=== PATIENT | male | born 1985 | race Caucasian/White ===

== ENCOUNTER → 2022-05-06 09:31 | Outpatient (BNVA) | payer BC, SELFPAY | PROVIDERS: Visit Provider Nurse Practitioner Family | DX: R74.8 Abnormal levels of other serum enzymes (principal); B19.20 Unspecified viral hepatitis C without hepatic coma | CPT/HCPCS: 80053; 86705; 86706; 86709; 86803; 87340; 87522; 87902 ==

== ENCOUNTER → 2022-05-25 15:48 | Outpatient (BNVA) | payer BC, SELFPAY | PROVIDERS: Visit Provider Nurse Practitioner Family | DX: B19.20 Unspecified viral hepatitis C without hepatic coma (principal); R74.8 Abnormal levels of other serum enzymes | CPT/HCPCS: 87522 ==

== ENCOUNTER → 2022-08-26 16:13 | Outpatient (BNVA) | payer BC, MEDICAID, SELFPAY | PROVIDERS: Visit Provider Student in an Organized Health Care Education/Training Program | DX: B18.2 Chronic viral hepatitis C (principal); Z11.4 Encounter for screening for human immunodeficiency virus [HIV] | CPT/HCPCS: 80053; 87806 ==

== ENCOUNTER 2022-09-29 06:08 | Outpatient (CLI) | payer BC, MEDICAID, SELFPAY ==
--- NOTE | 2022-09-29 06:15 | US_ITS ---
WS: [id number] RIGHT UPPER QUADRANT ULTRASOUND HISTORY: evaluate for hepatitis/ cirrhosis COMPARISON: None available. Liver: 16.4 cm in length. Liver is normal size. Normal echotexture. There is very slight nodularity a long the surface of the liver which can be seen with early changes of cirrhosis. No mass. No bile aj t dilatation. Portal Vein: Normal hepatopetal flow with monophasic waveform. Gallbladder: Normally distended gallbladder with no stones or wall thickening. CBD: 0.2 cm Pancreas: Normal size and echogenicity. Right kidney: 10.8 cm in length. Normal size and echogenicity. No hydronephrosis or mass. Aorta and IVC: Unremarkable abdominal aorta and IVC. No ascites. US/US liver [id number] IMPRESSION: 1. Normal gallbladder. 2. Normal size liver and normal echogenicity. No mass. 3. Mild surface nodularity of the liver which can be seen with cirrhosis.
== END 2022-09-29 06:09 | disposition home or self-care (01) ==
LOC: RAD 06:10
PROVIDERS: Visit Provider Student in an Organized Health Care Education/Training Program
DX: B18.2 Chronic viral hepatitis C (principal); Z11.4 Encounter for screening for human immunodeficiency virus [HIV]
CPT/HCPCS: 76705

== ENCOUNTER 2022-11-08 09:32 | Outpatient (CLI) | payer BC, MEDICAID, SELFPAY ==
[2022-11-11 20:24] LABS: HEP C RNA Viral Load Quant <1.18 NOT DETECTED Log IU/mL (NOT DETECTED); HEP C RNA Viral Load Quant <15 NOT DETECTED IU/mL (NOT DETECTED)
== END 2022-11-08 09:33 | disposition home or self-care (01) ==
LOC: LAB 09:35
PROVIDERS: PCP Student in an Organized Health Care Education/Training Program; Visit Provider Student in an Organized Health Care Education/Training Program
DX: B18.2 Chronic viral hepatitis C (principal)
CPT/HCPCS: 36415; 87522

== ENCOUNTER 2022-11-11 20:11 | Emergency (ER) | payer BC, MEDICAID, SELFPAY ==
[2022-11-11 20:17] VITALS: BP 115/93; PULSE 76; RESP 16; TEMP 36.9; O2SAT 98
--- NOTE | 2022-11-11 20:46 | W.ED.DENTAL ---
HPI - Dental/Oral General: Chief complaint: Dental/Oral Stated complaint: dental pain Time Seen by Provider: 11/11/22 20:25 History of Present Illness: Patient is in today for dental pain. He reports that for a couple of days he has had pain in his left upper jaw above his teeth at his gumline. He reports that he has terrible teeth that he is supposed to get them all pulled out next month but he thinks they are infected now. He denies fever but has had felt a little chilled today. Associated symptoms: Denies fever(s) Review of Systems Const: Reports: chills; Denies: fever(s) or body aches ENMT: Reports: dental pain Card: Denies: chest pain or palpitations Resp: Denies: dyspnea, productive cough or non-productive cough GI: Denies: abdominal pain, nausea or vomiting : Denies: flank pain, difficulty urinating or dysuria PFS ED PFSH: Surgical History Hx of eye surgery left Hx of thumb surgery right Social History Smoking and tobacco status: never smoked Second hand smoke exposure: No Smoking risk assessment/counseling performed?: No Alcohol intake: current Alcohol intake frequency: 3 or more drinks per day Alcohol type: beer Desire information about substance/drug rehabilitation?: No Counseling given: No Adopted: No Caregiver/support person: No Lives independently: Yes Household members: family Housing: House Marital status: Single Number of children: 0 Highest education level completed: 11th Grade service: No Current occupational status: unemployed Physical Exam Const: COMMON NORMALS: no acute distress, patient oriented x3 and alert HENMT: OTHER: Poor dentition with numerous caries and broken teeth. Gingiva left upper jaw is erythematous with no definitive drainable abscess appreciated. Neck/C-Spine: COMMON NORMALS: no JVD Lymph: OTHER: Anterior cervical lymphadenopathy left side. Resp: COMMON NORMALS: normal respiratory effort, No use of accessory muscles and clear to auscultation bilaterally AUSCULTATION: clear to auscultation bilaterally Cardio: COMMON NORMALS: no JVD, regular rate, regular rhythm, S1 normal heart sound present and S2 normal heart sound present RATE: regular rate RHYTHM: regular rhythm HEART SOUNDS: S1 normal heart sound present and S2 normal heart sound present Neuro: COMMON NORMALS: patient oriented x3, moves all extremities and no focal motor deficits SENSORIUM/ORIENTATION: Yes alert Course Vital Signs: Vital signs: Vital Signs Temperature 98.4 F 11/11/22 20:17 Pulse Rate 76 11/11/22 20:17 Respiratory Rate 16 11/11/22 20:17 Blood Pressure 115/93 11/11/22 20:17 Pulse Oximetry 98 11/11/22 20:17 MDM - Dental/Oral Medical Decision Making Patient is in today for dental pain times a couple of days. He denies fever but has had some chills. He has poor dentition and I reported appointment next month to have his teeth pulled. Start patient on amoxicillin antibiotic x10 days. Encouraged him to call the dentist and get on the cancellation list. Follow-up with primary care provider as needed. Return to the ER for new or worsening symptoms. Discharge Plan Discharge Patient Disposition: Home Clinical Impression: Dental caries, Dental infection Condition: Stable Prescriptions: New amoxicillin 875 mg tablet 875 mg PO BID 10 Days Qty: 20 0RF No Action Mavyret 100-40 mg tablet 3 tab PO DAILY 56 Days Qty: 168 0RF Rx Instructions: must administer with a meal/food Discharge Orders: Discharge ED (Routine); Ordered 11/11/22 Ordered By: Oly Stevenson Referrals: Alesha Liang MD [Primary Care Provider] - Discharge Diet: Usual diet Discharge Activity: Resume usual activity Activity Restrictions/Additional Instructions: Take antibiotic as directed starting tomorrow. You received your first dose of antibiotics tonight in the ER. Call and try and get on a cancellation list for your dentist so you can get in sooner potentially. Follow-up with your primary care provider. Return to the ER as needed for new or worsening symptoms Coding Level of Care Code ED Informatics Scientist for Ollie Villalta
== END 2022-11-11 21:14 | disposition home or self-care (01) ==
PROVIDERS: Emergency Provider Nurse Practitioner Family; PCP Student in an Organized Health Care Education/Training Program
DX: K02.9 Dental caries, unspecified (principal); K04.7 Periapical abscess without sinus
CPT/HCPCS: 99283

== ENCOUNTER 2022-11-15 09:39 | Emergency (ER) | payer BC, MEDICAID, SELFPAY ==
[2022-11-15 09:45] VITALS: BP 165/104; PULSE 66; RESP 16; TEMP 36.7; O2SAT 99
--- NOTE | 2022-11-15 11:15 | W.ED.DENTAL ---
HPI - Dental/Oral General: Chief complaint: Dental/Oral Stated complaint: tooth infection/scared of sepsis Time Seen by Provider: 11/15/22 09:50 History of Present Illness: Patient is a 37-year-old male comes to the ED with dental pain. Patient has been dealing with dental pain for the past 3 years. He is scheduled to see his dentist in a month to have tooth removed. Patient was seen here in the ED on November 11 for same complaint. He has been taking his prescribed amoxicillin. He says he is concerned that he is septic because he is having chills and sweaty balls and agitation per his research on sepsis. Denies any fevers. Associated symptoms: Denies fever(s) or odynophagia Review of Systems Const: Denies: fever(s), chills or fatigue Eyes: Denies: change in vision or eye discomfort ENMT: Reports: dental pain; Denies: throat pain, odynophagia, nasal discharge or nasal congestion Card: Denies: chest pain, palpitations, edema, swelling of feet/ankles, dyspnea on exertion or orthopnea Resp: Denies: dyspnea, productive cough or non-productive cough GI: Denies: abdominal pain, nausea, vomiting, diarrhea, constipation or hematochezia : Denies: flank pain, difficulty urinating, dysuria or hematuria Musc: Denies: neck pain, back pain or extremity swelling Skin/Breast: Denies: rash or new lesions Neuro: Denies: headache(s), numbness in extremities or weakness in extremities PFSH ED PFSH: Surgical History Hx of eye surgery left Hx of thumb surgery right Social History Smoking and tobacco status: never smoked Second hand smoke exposure: No Smoking risk assessment/counseling performed?: No Alcohol intake: current Alcohol intake frequency: 3 or more drinks per day Alcohol type: beer Desire information about substance/drug rehabilitation?: No Counseling given: No Adopted: No Caregiver/support person: No Lives independently: Yes Household members: family Housing: House Marital status: Single Number of children: 0 Highest education level completed: 11th Grade service: No Current occupational status: unemployed Physical Exam Const: COMMON NORMALS: patient oriented x3 HENMT: COMMON NORMALS: normocephalic HEAD & SCALP: normocephalic MOUTH: Normal oral and palatal mucosa present TEETH & GINGIVA: Yes caries and Yes poor dentition THROAT: posterior oropharynx normal and uvula midline Neck/C-Spine: COMMON NORMALS: supple GENERAL: Yes normal visual inspection Resp: COMMON NORMALS: normal respiratory effort, No retractions, No use of accessory muscles and clear to auscultation bilaterally AUSCULTATION: clear to auscultation bilaterally Cardio: COMMON NORMALS: regular rate, regular rhythm, S1 normal heart sound present, S2 normal heart sound present, No gallops present (Cardio), No clicks present (Cardio), No murmurs present (Cardio) and Peripheral pulses 2+ throughout RATE: regular rate RHYTHM: regular rhythm HEART SOUNDS: S1 normal heart sound present and S2 normal heart sound present PERIPHERAL PULSES: Peripheral pulses 2+ throughout GI: COMMON NORMALS: Normal to inspection, nondistended, normoactive bowel sounds present, Soft to palpation, non-tender and no masses PALPATION: Yes Soft to palpation : COMMON NORMALS: Yes no CVA tenderness BLADDER/KIDNEY EXAM: Yes no CVA tenderness Back/Pelvis: COMMON NORMALS: no CVA tenderness Extremity: COMMON NORMALS: normal to inspection Neuro: COMMON NORMALS: patient oriented x3 GAIT: Yes Normal gait present Skin: GENERAL SKIN EXAM: dry skin Course Vital Signs: Vital signs: Vital Signs Temperature 98.1 F 11/15/22 09:45 Pulse Rate 80 11/15/22 12:16 Respiratory Rate 16 11/15/22 12:16 Blood Pressure 165/104 11/15/22 09:45 Pulse Oximetry 98 11/15/22 12:16 Oxygen Delivery Mn thod 11/15/22 12:16 [facility] - Dental/Oral Medical Decision Making Patient is a 37-year-old male comes to the ED with dental pain. Patient has been dealing with dental pain for the past 3 years. He is scheduled to see his dentist in a month to have tooth removed. Patient was seen here in the ED on November 11 for same complaint. He has been taking his prescribed amoxicillin. He says he is concerned that he is septic because he is having chills and sweaty balls and agitation per his research on sepsis. Denies any fevers. Vital stable. CBC unremarkable white blood cell count 7.1. Exam of patient shows poor dental health with extensive dental caries. Patient was discharged home on clindamycin and told to follow-up with his dentist at his next scheduled appointment. Return ED precautions given. Patient understood and agreed with plan. Lab Data I reviewed the patient's lab results. 11/15/22 11: Laboratory Results WBC 7.1 10^3/uL (4.0-10.0) 11/15/22 11: RBC 4.97 10^6/uL (4.1-5.3) 11/15/22 11: Hgb 16.4 g/dL (11.7-16.6) 11/15/22 11: Hct 46.0 % (42.0-52.0) 11/15/22 11: MCV 92.6 fl (80-94) 11/15/22 11: MCH 33.0 pg (28.0-34.0) 11/15/22 11: MCHC 35.7 g/dL (30.0-36.0) 11/15/22 11: RDW 11.9 % (12.1-15.1) L 11/15/22 11: Plt Count 211 10^3/cmm (130-400) 11/15/22 11: MPV 9.3 fL (7.4-10.4) 11/15/22 11: Neut % (Auto) 63.6 % 11/15/22 11: Lymph % (Auto) 28.2 % 11/15/22 11: [place] % (Auto) 6.2 % 11/15/22 11: Eos % (Auto) 1.3 % 11/15/22 11: Baso % (Auto) 0.4 % 11/15/22 11: Neut # (Auto) 4.52 10^3/uL (1.8-7.7) 11/15/22 11: Lymph # (Auto) 2.0 10^3/uL (0.8-4.8) 11/15/22 11: [place] # (Auto) 0.4 10^3/uL (0.2-0.9) 11/15/22 11: Eos # (Auto) 0.1 10^3/uL (0.0-0.8) 11/15/22 11:27 Baso # (Auto) 0.0 10^3/uL (0.0-0.1) 11/15/22 11:27 Nucleated RBC % (auto) 0 % 11/15/22 11:27 Nucleated RBCs # 0.0 /100WBC 11/15/22 11:27 Discharge Plan Discharge Patient Disposition: Home Clinical Impression: Dental infection Condition: Stable Prescriptions: New clindamycin HCl 150 mg capsule 300 mg PO QID 7 Days Qty: 56 0RF No Action Mavyret 100-40 mg tablet 3 tab PO DAILY 56 Days Qty: 168 0RF Rx Instructions: must administer with a meal/food amoxicillin 875 mg tablet 875 mg PO BID 10 Days Qty: 20 0RF Discharge Orders: Discharge ED (Routine); Ordered 11/15/22 Ordered By: Venkat Collins Referrals: Alesha Liang MD [Primary Care Provider] - Discharge Diet: Regular Discharge Activity: Increase activity as tolerated Activity Restrictions/Additional Instructions: Follow-up with your dentist at your next scheduled appointment. Take medications as prescribed. Return to the ER or your medical provider if condition worsens. Please read and understand discharge instructions. Thank you for choosing [facility] for your healthcare needs today. Please realize this is an emergency room and that we are providing you with a medical screening exam and this may not be complete and all inclusive of all the testing and or work up that you may need to determine your ailment or severity of your illness. It is very important that you follow up as instructed or that you return to the Emergency Department should you have concerns or if your condition changes or worsens in any way. Coding Level of Care Code ED Clinical Nutritionist for Ollie Villalta
[2022-11-15 11:33] LABS: Basophils % 0.4 %; Eosinophils # 0.1 10^3/uL (0.0-0.8); Eosinophils % 1.3 %; Hemoglobin 16.4 g/dL (11.7-16.6); Lymphocytes % 28.2 %; Mean Corpuscular HGB Conc 35.7 g/dL (30.0-36.0); Mean Corpuscular Volume 92.6 fl (80-94); Mean Platelet Volume 9.3 fL (7.4-10.4); Monocytes # 0.4 10^3/uL (0.2-0.9); Monocytes % 6.2 %; Neutrophils # 4.52 10^3/uL (1.8-7.7); Neutrophils % 63.6 %; Nucleated Red Blood Cells % 0 %; Platelet Count 211 10^3/cmm (130-400); Red Blood Count 4.97 10^6/uL (4.1-5.3); Red Cell Distribution Width 11.9 % (12.1-15.1); White Blood Count 7.1 10^3/uL (4.0-10.0)
[2022-11-15] MEDS: clindamycin 150 mg Capsule 300 MG PO (12:12)
[2022-11-15 12:16] VITALS: PULSE 80; RESP 16; O2SAT 98
== END 2022-11-15 12:17 | disposition home or self-care (01) ==
PROVIDERS: Emergency Provider Physician Assistant; PCP Student in an Organized Health Care Education/Training Program
DX: K04.7 Periapical abscess without sinus (principal)
CPT/HCPCS: 36415; 85025; 99283

== ENCOUNTER 2022-11-29 09:59 | Emergency (ER) | payer BC, MEDICAID, SELFPAY ==
[2022-11-29 10:20] VITALS: BP 170/115; PULSE 79; RESP 17; TEMP 36.5; O2SAT 98; BMI 22.3
[2022-11-29 12:06] VITALS: BP 150/87; PULSE 77; RESP 16; O2SAT 97
--- NOTE | 2022-11-29 12:07 | W.ED.DENTAL ---
HPI - Dental/Oral General: Chief complaint: Dental/Oral Stated complaint: tooth infection Time Seen by Provider: 11/29/22 10:07 History of Present Illness: Patient is a 37-year-old male that comes to the ED with dental pain. Patient has been seen here multiple times in the past for same complaint and his most recent visit was on November 15. He took his full course of clindamycin and said his symptoms improved. This morning he woke up and he was having some shooting dental pains again. Denies any facial or gum swelling. He has an appointment with his dentist on December 21. Associated symptoms: Denies fever(s) or odynophagia Review of Systems Const: Denies: fever(s), chills or fatigue Eyes: Denies: change in vision or eye discomfort ENMT: Reports: dental pain; Denies: throat pain, odynophagia, nasal discharge or nasal congestion Card: Denies: chest pain, palpitations, edema, swelling of feet/ankles, dyspnea on exertion or orthopnea Resp: Denies: dyspnea, productive cough or non-productive cough GI: Denies: abdominal pain, nausea, vomiting, diarrhea, constipation or hematochezia : Denies: flank pain, difficulty urinating, dysuria or hematuria Musc: Denies: neck pain, back pain or extremity swelling Skin/Breast: Denies: rash or new lesions Neuro: Denies: headache(s), numbness in extremities or weakness in extremities PFS ED PFSH: Surgical History Hx of eye surgery left Hx of thumb surgery right Social History Smoking and tobacco status: never smoked Second hand smoke exposure: No Smoking risk assessment/counseling performed?: No Alcohol intake: current Alcohol intake frequency: 3 or more drinks per day Alcohol type: beer Substance/Drug Use: never Desire information about substance/drug rehabilitation?: No Counseling given: No Adopted: No Caregiver/support person: No Lives independently: Yes Household members: family Housing: House Marital status: Single Number of children: 0 Highest education level completed: 11th Grade service: No Current occupational status: unemployed Physical Exam Const: COMMON NORMALS: patient oriented x3 HENMT: COMMON NORMALS: normocephalic HEAD & SCALP: normocephalic MOUTH: Normal oral and palatal mucosa present TEETH & GINGIVA: Yes caries and Yes poor dentition THROAT: posterior oropharynx normal and uvula midline Neck/C-Spine: COMMON NORMALS: supple GENERAL: Yes normal visual inspection Resp: COMMON NORMALS: normal respiratory effort, No retractions, No use of accessory muscles and clear to auscultation bilaterally AUSCULTATION: clear to auscultation bilaterally Cardio: COMMON NORMALS: regular rate, regular rhythm, S1 normal heart sound present, S2 normal heart sound present, No gallops present (Cardio), No clicks present (Cardio), No murmurs present (Cardio) and Peripheral pulses 2+ throughout RATE: regular rate RHYTHM: regular rhythm HEART SOUNDS: S1 normal heart sound present and S2 normal heart sound present PERIPHERAL PULSES: Peripheral pulses 2+ throughout GI: COMMON NORMALS: Normal to inspection, nondistended, normoactive bowel sounds present, Soft to palpation, non-tender and no masses PALPATION: Yes Soft to palpation : COMMON NORMALS: Yes no CVA tenderness BLADDER/KIDNEY EXAM: Yes no CVA tenderness Back/Pelvis: COMMON NORMALS: no CVA tenderness Extremity: COMMON NORMALS: normal to inspection Neuro: COMMON NORMALS: patient oriented x3 GAIT: Yes Normal gait present Skin: GENERAL SKIN EXAM: dry skin Course Vital Signs: Vital signs: Vital Signs Temperature 97.7 F 11/29/22 10:20 Pulse Rate 77 11/29/22 12:36 Respiratory Rate 16 11/29/22 12:36 Blood Pressure 157/90 11/29/22 12:36 Pulse Oximetry 98 11/29/22 12:36 Oxygen Delivery Me thod Room Air 11/29/22 12:06 MDM - Dental/Oral Medical Decision Making Patient is a 37-year-old male that comes to the ED with dental pain. Patient has been seen here multiple times in the past for same complaint and his most recent visit was on November 15. He took his full course of clindamycin and said his symptoms improved. This morning he woke up and he was having some shooting dental pains again. Denies any facial or gum swelling. He has an appointment with his dentist on December 21. Vitals are stable. Patient appears nontoxic in no acute distress or pain. He has poor dental health and dental caries all throughout his teeth. Patient diagnosed with pain due to dental caries and was discharged home on antibiotic. Patient told to follow-up with his dentist at his scheduled appointment in December for further treatment of dental issues. Patient understood and agreed with plan Discharge Plan Discharge Patient Disposition: Home Clinical Impression: Pain due to dental caries Condition: Stable Prescriptions: New Augmentin 500-125 mg tablet 1 tab PO BID 7 Days Qty: 14 0RF Discharge Orders: Discharge ED (Routine); Ordered 11/29/22 Ordered By: Venkat Collins Referrals: Alesha Liang MD [Primary Care Provider] - Discharge Diet: Regular Discharge Activity: Increase activity as tolerated Activity Restrictions/Additional Instructions: Follow-up with your dentist at your next scheduled appointment. Take medications as prescribed. Return to the ER or your medical provider if condition worsens. Please read and understand discharge instructions. Thank you for choosing [facility] for your healthcare needs today. Please realize this is an emergency room and that we are providing you with a medical screening exam and this may not be complete and all inclusive of all the testing and or work up that you may need to determine your ailment or severity of your illness. It is very important that you follow up as instructed or that you return to the Emergency Department should you have concerns or if your condition changes or worsens in any way. Coding Level of Care Code ED Oil Field Rig Builder for Ollie Villalta
[2022-11-29 12:36] VITALS: BP 157/90; PULSE 77; RESP 16; O2SAT 98
== END 2022-11-29 12:37 | disposition home or self-care (01) ==
PROVIDERS: Emergency Provider Physician Assistant; PCP Student in an Organized Health Care Education/Training Program
DX: K02.9 Dental caries, unspecified (principal)
CPT/HCPCS: 99283

== ENCOUNTER 2023-02-11 14:04 | Emergency (ER) | payer BC, MEDICAID, SELFPAY ==
[2023-02-11 14:13] VITALS: BP 162/102; PULSE 82; RESP 17; TEMP 36.6; O2SAT 98; BMI 20.6
[2023-02-11 15:56] LABS: Basophils # 0.1 10^3/uL (0.0-0.1); Basophils % 0.7 %; Eosinophils # 0.3 10^3/uL (0.0-0.8); Eosinophils % 3.3 %; Hematocrit 44.9 % (42.0-52.0); Hemoglobin 15.5 g/dL (11.7-16.6); Lymphocytes # 2.6 10^3/uL (0.8-4.8); Lymphocytes % 33.7 %; Mean Corpuscular HGB Conc 34.5 g/dL (30.0-36.0); Mean Corpuscular Hemoglobin 31.9 pg (28.0-34.0); Mean Corpuscular Volume 92.4 fl (80-94); Mean Platelet Volume 10.4 fL (7.4-10.4); Monocytes # 0.7 10^3/uL (0.2-0.9); Monocytes % 8.7 %; Neutrophils # 4.09 10^3/uL (1.8-7.7); Neutrophils % 53.2 %; Nucleated Red Blood Cells % 0 %; Platelet Count 172 10^3/cmm (130-400); Red Blood Count 4.86 10^6/uL (4.1-5.3); White Blood Count 7.7 10^3/uL (4.0-10.0)
[2023-02-11 16:21] LABS: Alanine Aminotransferase 15 U/L (0-41); Albumin Level 4.7 g/dL (3.5-5.2); Alkaline Phosphatase 46 U/L (40-130); Anion Gap 13.3 (5-19); Aspartate Amino Transferase 25 U/L (0-40); Blood Urea Nitrogen 10 mg/dL (6-20); Calcium 10.1 mg/dL (8.5-10.5); Carbon Dioxide 28 mmol/L (22-29); Chloride 102 mmol/L (98-107); Creatinine Clr Calc Pharmacy 130.0592; Globulin 3.2 g/dL (1.3-4.6); Glomerular Filtration Rate 109.4 mL/min (90-130); Glucose 94 mg/dL (65-115); Lipase 26 U/L (13-60); Osmolality Calculated 287 mOsm/kg (285-295); Potassium 4.3 mmol/L (3.5-5.1); Sodium 139 mmol/L (136-145); Total Bilirubin 0.7 mg/dL (0.15-1.2); Total Protein 7.9 g/dL (6.6-8.7)
--- NOTE | 2023-02-11 16:24 | XRR_ITS ---
PROCEDURE INFORMATION: Exam: XR Abdomen Exam date and time: 02/11/2023 4:34 PM Age: 37 years old Clinical indication: Constipation TECHNIQUE: Imaging protocol: Radiologic exam of the abdomen. Views: Frontal supine view of the abdomen. 1 View. COMPARISON: US liver [id number] 09/29/2022 6:25 AM FINDINGS: Gastrointestinal tract: [id number] amount of stool dispersed throughout the colon. No bowel dilation. Bones/joints: Unremarkable. XR/XR abdomen 1V* [id number] IMPRESSION: No acute findings.
--- NOTE | 2023-02-11 16:45 | ED_ITS ---
HPI - Abdominal Pain General: Chief Complaint: Abdominal Pain Stated Complaint: abd pain, constipation, black stool Time Seen by Provider: 02/11/23 16:20 History of Present Illness: Patient presents to the ER with complaints of worsening stomach ulcers abdominal pain and constipation. Patient states has not been having much of an appetite. Patient states he has been having black tarry stools. He states that he has been using everything [id number] nothing seems to work. Patient said he used to be an alcoholic but recently stopped drinking about 4 months ago. Review of Systems General: Reports: 10 or more systems reviewed and unremarkable except in HPI and below PFSH ED PFSH: Surgical History Hx of eye surgery left Hx of thumb surgery right Social History Smoking and tobacco status: never smoked Second hand smoke exposure: No Smoking risk assessment/counseling performed?: No Alcohol intake: current Alcohol intake frequency: 3 or more drinks per day Alcohol type: beer Substance/Drug Use: never Desire information about substance/drug rehabilitation?: No Counseling given: No Adopted: No Caregiver/support person: No Lives independently: Yes Household members: family Housing: House Marital status: Single Number of children: 0 Highest education level completed: 11th Grade service: No Current occupational status: unemployed Physical Exam Const: COMMON NORMALS: no acute distress, average body habitus, patient or iented x3, no limitations, healthy appearing, alert and well nourished HENMT: COMMON NORMALS: normocephalic, atraumatic, hearing grossly normal bi laterally, external ears normal, Normal external nose present and moist oral mucous membranes HEAD & SCALP: normocephalic and atraumatic NOSE: Normal external nose present EXTERNAL EAR: Yes external ears normal Eye: COMMON NORMALS: Equal, round and reactive pupils present, EOMs intact bilaterally, conjunctivae normal and no scleral icterus CONJUNCTIVA: Yes conjunctivae normal PUPIL: Yes Equal, round and reactive pupils present Neck/C-Spine: COMMON NORMALS: full ROM, no lymphadenopathy, supple, no meningeal signs, no JVD and Thyroid normal THYROID: Thyroid normal Lymph: LYMPHATIC: no lymphadenopathy noted Chest: COMMONS NORMALS: normal inspection of the chest and normal palpation of entire chest wall Resp: COMMON NORMALS: normal respiratory effort, No retractions, No use of accessory muscles and clear to auscultation bilaterally AUSCULTATION: clear to auscultation bilaterally Cardio: COMMON NORMALS: no JVD, regular rate, regular rhythm, S1 normal heart sound present, S2 normal heart sound present, No gallops present (Cardio), No clicks present (Cardio), No murmurs present (Cardio) and No rub (Cardio) RATE: regular rate RHYTHM: regular rhythm HEART SOUNDS: S1 normal heart sound present and S2 normal heart sound present GI: COMMON NORMALS: Normal to inspection, nondistended, normoactive bowel sounds present, Soft to palpation, non-tender, No hepatosplenomegaly present and no masses PALPATION: Yes Soft to palpation and Yes No hepatosplenomegaly present : COMMON NORMALS: Yes no CVA tenderness BLADDER/KIDNEY EXAM: Yes no CVA tenderness Back/Pelvis: COMMON NORMALS: no CVA tenderness Neuro: COMMON NORMALS: patient oriented x3 SENSORIUM/ORIENTATION: Yes alert MENINGEAL SIGNS: Yes no meningeal signs Course Vital Signs: Vital signs: Vital Signs Temperature 97.9 F 02/11/23 14:13 Pulse Rate 61 02/11/23 17:57 Respiratory Rate 17 02/11/23 14:13 Blood Pressure 143/102 02/11/23 17:57 Pulse Oximetry 93 02/11/23 17:57 Oxygen Delivery Me thod Room Air 02/11/23 17:57 MDM - Abdominal Pain Medical Decision Making Patient presents today with complaints of worsening ulcer type epigastric pain. Patient states he is failed everything [id number] and is also having some dark tarry stools. Lab work was obtained which is unremarkable. A stool sample was sent to lab, patient was given a GI cocktail which did seem to help. Patient be discharged home on Differential Diagnosis Likely abdominal pain and constipation; Unlikely acute appendicitis, calculus of kidney, diverticulitis, endometriosis, gastroenteritis, pancreatitis or small bowel obstruction Medical Records I reviewed the patient's medical records. Lab Data I reviewed the patient's lab results. 02/11/23 15:36 02/11/23 15:36 Labs/Radiology: Radiology Impressions Abdomen X-Ray 02/11/23 16:24 IMPRESSION: No acute findings. Laboratory Results WBC 7.7 10^3/uL (4.0-10.0) 02/11/23 15:36 RBC 4.86 10^6/uL (4.1-5.3) 02/11/23 15:36 Hgb 15.5 g/dL (11.7-16.6) 02/11/23 15:36 Hct 44.9 % (42.0-52.0) 02/11/23 15:36 MCV 92.4 fl (80-94) 02/11/23 15:36 MCH 31.9 pg (28.0-34.0) 02/11/23 15:36 MCHC 34.5 g/dL (30.0-36.0) 02/11/23 15:36 RDW 12.0 % (12.1-15.1) L 02/11/23 15:36 Plt Count 172 10^3/cmm (130-400) 02/11/23 15:36 MPV 10.4 fL (7.4-10.4) 02/11/23 15:36 Neut % (Auto) 53.2 % 02/11/23 15:36 Lymph % (Auto) 33.7 % 02/11/23 15:36 [place] % (Auto) 8.7 % 02/11/23 15:36 Eos % (Auto) 3.3 % 02/11/23 15:36 Baso % (Auto) 0.7 % 02/11/23 15:36 Neut # (Auto) 4.09 10^3/uL (1.8-7.7) 02/11/23 15:36 Lymph # (Auto) 2.6 10^3/uL (0.8-4.8) 02/11/23 15:36 [place] # (Auto) 0.7 10^3/uL (0.2-0.9) 02/11/23 15:36 Eos # (Auto) 0.3 10^3/uL (0.0-0.8) 02/11/23 15:36 Baso # (Auto) 0.1 10^3/uL (0.0-0.1) 02/11/23 15:36 Nucleated RBC % (auto) 0 % 02/11/23 15:36 Nucleated RBCs # 0.0 /100WBC 02/11/23 15:36 Sodium 139 mmol/L (136-145) 02/11/23 15:36 Potassium 4.3 mmol/L (3.5-5.1) 02/11/23 15:36 Chloride 102 mmol/L (98-107) 02/11/23 15:36 Carbon Dioxide 28 mmol/L (22-29) 02/11/23 15:36 Anion Gap 13.3 (5-19) 02/11/23 15:36 BUN 10 mg/dL (6-20) 02/11/23 15:36 Creatinine 0.8 mg/dL (0.7-1.2) 02/11/23 15:36 GFR Calculation 109.4 mL/min (90-130) 02/11/23 15:36 Glucose 94 mg/dL (65-115) 02/11/23 15:36 Calculated Osmolality 287 mOsm/kg (285-295) 02/11/23 15:36 Calcium 10.1 mg/dL (8.5-10.5) 02/11/23 15:36 Total Bilirubin 0.7 mg/dL (0.15-1.2) 02/11/23 15:36 AST 25 U/L (0-40) 02/11/23 15:36 ALT 15 U/L (0-41) 02/11/23 15:36 Alkaline Phosphatase 46 U/L (40-130) 02/11/23 15:36 Total Protein 7.9 g/dL (6.6-8.7) 02/11/23 15:36 Albumin 4.7 g/dL (3.5-5.2) 02/11/23 15:36 Globulin 3.2 g/dL (1.3-4.6) 02/11/23 15:36 Lipase 26 U/L (13-60) 02/11/23 15:36 Discharge Plan Discharge Patient Disposition: Home Clinical Impression: Peptic ulcer disease Gastritis Qualifiers: Gastritis type: other gastritis Chronicity: unspecified Gastritis bleeding: presence of bleeding unspecified Qualified Code(s): K29.60 - Other gastritis without bleeding Condition: Stable Prescriptions: New pantoprazole [Protonix] 40 mg tablet,delayed release (DR/EC) 40 mg PO DAILY Qty: 30 0RF sucralfate [Carafate] 1 gram tablet 1 g PO Q6H Qty: 60 0RF Discharge Orders: Discharge ED (Routine); Ordered 07/07/23 Ordered By: Keith Ramey Referrals: Alesha Liang MD [Primary Care Provider] - Patient Instructions: Peptic Ulcer (ED), Diet for Stomach Ulcers and Gastritis (ED) Activity Restrictions/Additional Instructions: Please take all medicine as prescribed. Please follow-up with PCP in the next 1 week or sooner as needed. Coding Level of Care Code ED Station Captain for Ollie Villalta
[2023-02-11 16:53] VITALS: BP 153/100; PULSE 75; O2SAT 95
[2023-02-11] MEDS: lidocaine 2% viscous 15 ML, aluminum-mag hydrox-simethicon 30 ML, sucralfate oral liq 1 GM PO (17:00)
[2023-02-11 17:57] VITALS: BP 143/102; PULSE 61; O2SAT 93
[2023-02-11 18:23] LABS: Urine Appearance Clear (CLEAR); Urine Color Yellow (Yellow); pH Urine 5 (5-7)
[2023-02-11 18:25] LABS: Blood Urine Neg (Negative); Glucose Urine UA Norm (Normal); Ketones Urine Negative (Negative); Protein Urine Neg (Negative)
[2023-02-11 18:26] VITALS: BP 143/85; PULSE 85; O2SAT 99
[2023-02-11 18:26] LABS: Add Urine Microscopic? YES; Bilirubin Urine Neg (Negative); Leukocyte Esterase Urine 1+ (Negative); Nitrate Urine Negative (Negative); Squamous Epithelial Cell Urine 0-4 /hpf (0-5); Urobilinogen Urine Norm (Negative); WBC Urine 0-4 /hpf (0-5)
== END 2023-02-11 18:27 | disposition home or self-care (01) ==
PROVIDERS: Physician Assistant; Emergency Provider Emergency Medicine; PCP Student in an Organized Health Care Education/Training Program
DX: K29.60 Other gastritis without bleeding (principal); K27.9 Peptic ulcer, site unspecified, unspecified as acute or chronic, without hemorrhage or perforation
CPT/HCPCS: 36415; 74018; 80053; 81001; 82274; 83690; 85025; 99284

== ENCOUNTER 2023-03-12 06:13 | Emergency (ER) | payer BC, MEDICAID, SELFPAY ==
[2023-03-12 06:15] VITALS: BP 140/90; PULSE 75; RESP 18; TEMP 36.8; O2SAT 96; BMI 20.9
[2023-03-12 06:20] VITALS: BP 140/90; PULSE 56; RESP 18; O2SAT 93
--- NOTE | 2023-03-12 06:40 | ED_ITS ---
HPI - Abdominal Pain General: Chief Complaint: Abdominal Pain Stated Complaint: RUQ pain Time Seen by Provider: 03/12/23 06:25 History of Present Illness: 37-year-old male presents emergency department complaints of right upper quadrant abdominal pain he states this has been ongoing for the previous 3 weeks. He states he has seen a medical provider here in the emergency department and received Protonix which she initially started taking at 20 mg once a day he has seen his primary care provider who increased his dose to 20 mg twice a day he is also scheduled for an EGD on March 18. He states he has continued to have a burning type sensation. He states that he initially was taking Carafate which was prescribed here in the emergency department but ran out. He states he is concerned that his liver enzymes are slightly elevated again as he does have a history of hepatitis C and did receive treatment some number of months ago. He states he has not consumed alcohol and has followed the recommendations previously given to him. He states his discomfort is a 3 out of 10 burning type pain. He does state that he has associated diarrhea that is watery in nature he states there is no hematic emesis or hematochezia that he is noted. Associated Symptoms: Reports diarrhea Review of Systems 2 General: Reports: 10 or more systems reviewed and unremarkable except in HPI and below GI: Reports: abdominal pain and diarrhea PFSH ED PFSH: Surgical History Hx of eye surgery left Hx of thumb surgery right Social History Smoking and tobacco status: never smoked Second hand smoke exposure: No Smoking risk assessment/counseling performed?: No Alcohol intake: current Alcohol intake frequency: 3 or more drinks per day Alcohol type: beer Substance/Drug Use: never Desire information about substance/drug rehabilitation?: No Counseling given: No Adopted: No Caregiver/support person: No Lives independently: Yes Household members: family Housing: House Marital status: Single Number of children: 0 Highest education level completed: 11th Grade service: No Current occupational status: unemployed Physical Exam Const: COMMON NORMALS: no acute distress, patient oriented x3 and alert HENMT: COMMON NORMALS: normocephalic, atraumatic, external ears normal and Normal external nose present HEAD & SCALP: normal to inspection, normocephalic and atraumatic NOSE: Normal external nose present EXTERNAL EAR: Yes external ears normal MOUTH: Normal oral and palatal mucosa present and tongue abnormal TEETH & GINGIVA: Yes poor dentition Eye: COMMON NORMALS: Equal, round and reactive pupils present GENERAL EYE: appearance normal, both eyes and all related structures PUPIL: Yes Equal, round and reactive pupils present Neck/C-Spine: GENERAL: Yes normal visual inspection and Yes trachea midline Lymph: LYMPHATIC: no lymphadenopathy noted and no lymphedema noted Chest: COMMONS NORMALS: normal inspection of the chest and normal palpation of entire chest wall Resp: COMMON NORMALS: normal respiratory effort, No retractions, No use of accessory muscles and clear to auscultation bilaterally AUSCULTATION: clear to auscultation bilaterally Cardio: COMMON NORMALS: regular rhythm, S1 normal heart sound present, S2 normal heart sound present, No gallops present (Cardio), No murmurs present (Cardio) and Peripheral pulses 2+ throughout RHYTHM: regular rhythm HEART SOUNDS: S1 normal heart sound present and S2 normal heart sound present PERIPHERAL PULSES: Peripheral pulses 2+ throughout GI: COMMON NORMALS: Normal to inspection, nondistended, normoactive bowel sounds present, Soft to palpation, non-tender, No hepatosplenomegaly present and no masses PALPATION: Yes Soft to palpation and Yes No hepatosplenomegaly pres ent : COMMON NORMALS: Yes no CVA tenderness BLADDER/KIDNEY EXAM: Yes no CVA tenderness Back/Pelvis: COMMON NORMALS: no CVA tenderness and thoracic and lumbar spine normal to inspection Extremity: GENERAL: Yes normal exam except as noted Neuro: COMMON NORMALS: patient oriented x3, moves all extremities, no sensory deficits noted and gait normal SENSORIUM/ORIENTATION: Yes alert Psych: COMMON NORMALS: mental status grossly normal, Normal thought process present, cooperative and speech normal SPEECH: Yes normal speech THOUGHT PROCESS: Normal thought process present Skin: COMMON NORMALS: no rashes or lesions noted, turgor normal and no jaundice GENERAL SKIN EXAM: no rashes or lesions noted and turgor normal Course Vital Signs: Vital signs: Vital Signs Temperature 98.3 F 03/12/23 06:15 Pulse Rate 52 L 03/12/23 07:00 Respiratory Rate 16 03/12/23 07:00 Blood Pressure 140/90 03/12/23 06:20 Pulse Oximetry 96 03/12/23 07:00 Oxygen Delivery Me thod Room Air 03/12/23 06:20 MDM - Abdominal Pain Medical Decision Making Patient physical exam completed and documented, I reviewed the patient's previous medical record where he was seen and diagnosed with gastritis he states he has been taking pantoprazole and was initially prescribed Carafate but has ran out. He states he is scheduled for an EGD on March 18. He states he is concerned as he does feel intermittent pain to his right upper quadrant I suspect this is most likely that he is trying to get his life together in be healthier since his diagnosis of hepatitis C. He does not appear in acute distress I did review his laboratory evaluations and found no significant abnormalities and I share that information with him and provided continued support and encouragement for his healthy lifestyle change. I will prescribe him Carafate to help for his peptic ulcer disease and recommended continue taking his pantoprazole as prescribed by his primary care provider twice a day. Patient verbalized understanding all information provided was discharged home in stable condition in no acute distress. Medical Records I reviewed the patient's medical records. I reviewed the patient's previous medical records as well as previous laboratory evaluation. Lab Data I reviewed the patient's lab results. 03/12/23 06:27 03/12/23 06:27 Labs/Radiology: Laboratory Results WBC 5.6 10^3/uL (4.0-10.0) 03/12/23 06:27 RBC 4.45 10^6/uL (4.1-5.3) 03/12/23 06:27 Hgb 14.3 g/dL (11.7-16.6) 03/12/23 06:27 Hct 41.1 % (42.0-52.0) L 03/12/23 06:27 MCV 92.4 fl (80-94) 03/12/23 06:27 MCH 32.1 pg (28.0-34.0) 03/12/23 06: MCHC 34.8 g/dL (30.0-36.0) 03/12/23 06:27 RDW 12.2 % (12.1-15.1) 03/12/23 06:27 Plt Count 143 10^3/cmm (130-400) 03/12/23 06:27 MPV 10.7 fL (7.4-10.4) H 03/12/23 06:27 Neut % (Auto) 64.5 % 03/12/23 06:27 Lymph % (Auto) 25.3 % 03/12/23 06:27 [place] % (Auto) 8.0 % 03/12/23 06:27 Eos % (Auto) 1.1 % 03/12/23 06:27 Baso % (Auto) 0.7 % 03/12/23 06:27 Neut # (Auto) 3.63 10^3/uL (1.8-7.7) 03/12/23 06:27 Lymph # (Auto) 1.4 10^3/uL (0.8-4.8) 03/12/23 06:27 [place] # (Auto) 0.5 10^3/uL (0.2-0.9) 03/12/23 06:27 Eos # (Auto) 0.1 10^3/uL (0.0-0.8) 03/12/23 06:27 Baso # (Auto) 0.0 10^3/uL (0.0-0.1) 03/12/23 06:27 Nucleated RBC % (auto) 0 % 03/12/23 06: Nucleated RBCs # 0.0 /100WBC 03/12/23 06:27 Sodium 142 mmol/L (136-145) 03/12/23 06:27 Potassium 3.0 mmol/L (3.5-5.1) L 03/12/23 06: Chloride 106 mmol/L (98-107) 03/12/23 06: Carbon Dioxide 25 mmol/L (22-29) 03/12/23 06:27 Anion Gap 14.0 (5-19) 03/12/23 06:27 BUN 3 mg/dL (6-20) L 03/12/23 06:27 Creatinine 0.7 mg/dL (0.7-1.2) 03/12/23 06:27 GFR Calculation 127.6 mL/min (90-130) 03/12/23 06:27 Glucose 122 mg/dL (65-115) H 03/12/23 06:27 Calculated Osmolality 292 mOsm/kg (285-295) 03/12/23 06:27 Calcium 9.3 mg/dL (8.5-10.5) 03/12/23 06:27 Total Bilirubin 0.7 mg/dL (0.15-1.2) 03/12/23 06:27 AST 23 U/L (0-40) 03/12/23 06:27 ALT 12 U/L (0-41) 03/12/23 06:27 Alkaline Phosphatase 47 U/L (40-130) 03/12/23 06:27 Total Protein 7.4 g/dL (6.6-8.7) 03/12/23 06:27 Albumin 4.7 g/dL (3.5-5.2) 03/12/23 06:27 Globulin 2.7 g/dL (1.3-4.6) 03/12/23 06:27 Discharge Plan Discharge Patient Disposition: Home Clinical Impression: Gastritis Condition: Stable Prescriptions: No Action pantoprazole [Protonix] 40 mg tablet,delayed release (DR/EC) 40 mg PO BID Qty: 60 1RF Carafate 1 gram tablet 1 g PO Q6H Qty: 60 0RF Discharge Orders: Discharge ED (Routine); Ordered 03/12/23 Ordered By: John Castillo Referrals: Alesha Liang MD [Primary Care Provider] - Discharge Diet: Advance as tolerated Discharge Activity: Resume usual activity Patient Instructions: Opioid Safety, Pain Management Coding Level of Care Code ED Hot Tar Roofer for Ollie Villalta
[2023-03-12 06:48] LABS: Basophils % 0.7 %; Eosinophils # 0.1 10^3/uL (0.0-0.8); Eosinophils % 1.1 %; Hematocrit 41.1 % (42.0-52.0); Hemoglobin 14.3 g/dL (11.7-16.6); Lymphocytes # 1.4 10^3/uL (0.8-4.8); Lymphocytes % 25.3 %; Mean Corpuscular HGB Conc 34.8 g/dL (30.0-36.0); Mean Corpuscular Hemoglobin 32.1 pg (28.0-34.0); Mean Corpuscular Volume 92.4 fl (80-94); Mean Platelet Volume 10.7 fL (7.4-10.4); Monocytes # 0.5 10^3/uL (0.2-0.9); Neutrophils # 3.63 10^3/uL (1.8-7.7); Neutrophils % 64.5 %; Nucleated Red Blood Cells % 0 %; Platelet Count 143 10^3/cmm (130-400); Red Blood Count 4.45 10^6/uL (4.1-5.3); Red Cell Distribution Width 12.2 % (12.1-15.1); White Blood Count 5.6 10^3/uL (4.0-10.0)
[2023-03-12 07:00] VITALS: PULSE 52; RESP 16; O2SAT 96
[2023-03-12] MEDS: sucralfate 1 gm Tablet PO (07:01)
[2023-03-12 07:13] LABS: Alanine Aminotransferase 12 U/L (0-41); Albumin Level 4.7 g/dL (3.5-5.2); Alkaline Phosphatase 47 U/L (40-130); Aspartate Amino Transferase 23 U/L (0-40); Blood Urea Nitrogen 3 mg/dL (6-20); Calcium 9.3 mg/dL (8.5-10.5); Carbon Dioxide 25 mmol/L (22-29); Chloride 106 mmol/L (98-107); Creatinine Clr Calc Pharmacy 149.3877; Globulin 2.7 g/dL (1.3-4.6); Glomerular Filtration Rate 127.6 mL/min (90-130); Glucose 122 mg/dL (65-115); Osmolality Calculated 292 mOsm/kg (285-295); Sodium 142 mmol/L (136-145); Total Bilirubin 0.7 mg/dL (0.15-1.2); Total Protein 7.4 g/dL (6.6-8.7)
[2023-03-12] MEDS: potassium chloride ER 20 mEq Tablet 40 MEQ PO (08:05)
[2023-03-12 08:08] VITALS: RESP 18
== END 2023-03-12 08:16 | disposition home or self-care (01) ==
PROVIDERS: Emergency Provider Internal Medicine; PCP Student in an Organized Health Care Education/Training Program
DX: K29.70 Gastritis, unspecified, without bleeding (principal)
CPT/HCPCS: 80053; 85025; 99283

== ENCOUNTER 2023-03-18 08:38 | Day surgery (SDC) | payer BC, MEDICAID, SELFPAY ==
[2023-03-16 12:21] VITALS: BMI 20.9
[2023-03-18 08:54] VITALS: BP 144/80; PULSE 73; RESP 18; TEMP 36.3; O2SAT 100
[2023-03-18] MEDS: sodium chloride 0.9% 1,000 ML 30 ML IV (09:08)
--- NOTE | 2023-03-18 09:58 | ANES.PREANE2 ---
Pre-Anesthetic Assessment Height/Weight: Height 1.8 m Weight 68.039 kg Temp Pulse Resp BP Pulse Ox O2 Del Method 97.3 F L 73 18 144/80 100 Room Air 03/18/23 08:54 03/18/23 08:54 03/18/23 08:54 03/18/23 08:54 03/18/23 08:54 03/18/23 08:54 Preop Diagnosis: GERD, melena Operation Date: 03/18/23 09:45 [place] [id number] EGD [k92.1, K21.9(Not Applicable) - Eric Dela Cruz, DO Was Beta Krupa taken within 24 hours: N/A Was Clonidine taken within 24 hours: N/A Last intake: Intake Last Liquid Date 03/17/23 Last Liquid Time 22:00 Last Solid Date 03/17/23 Last Solid Time 18:00 Social No alcohol and No tobacco Stopped drinking alcohol abou 4 months ago Exam alert, oriented x 3 and clear to auscultation bilaterally Airway Submandibular: within normal limits Cervical ROM: within normal limits Mallampati: Class II Dentition: other (poor dentition, missing multiple, right front tooth chipped/ broken ) History/ROS No significant history except as noted Pulmonary None reported CV/HEM None reported None reported Hepatic Hepatitis (Hep C) GI Gastroesophageal Reflux Disease Metabolic None reported Musc/skel None reported Neuropsych Seizure (1 seizure years ago, never started on medication and has not had any more seizures) Anesthetic Plan ASA status: 2 Anesthesia: Anesthesia Evaluation and MAC Risk of > 500 ml blood loss (7ml/kg in children): No Medications/Allergies Home Medications Medication Instructions Recorded Confirmed Last Taken Type pantoprazole 40 mg tablet,delayed 40 mg PO BID #60 tabs 02/22/23 03/18/23 03/18/23 06:00 Rx release (Protonix) sucralfate 1 gram tablet (Carafate) 1 g PO Q6H #60 tabs 03/12/23 03/18/23 03/18/23 06:00 Rx Allergies Allergy/AdvReac Type Severity Reaction Status Date / Time No Known Allergies Allergy Unverified 02/22/23 10:22 Current Medications Generic Name Dose Route Start Last Admin Trade Name Freq PRN Reason Stop Dose Admin Sodium Chloride 1,000 mls @ 30 mls/hr 03/18/23 09:00 03/18/23 09:08 Sodium Chloride 0.9% IV 03/19/23 08:59 30 mls/hr .Q24H MYRANDA Administration PFSH Anesthesia Surgical History Hx of eye surgery left Hx of thumb surgery right Social History Smoking and tobacco status: never smoked Second hand smoke exposure: No Smoking risk assessment/counseling performed?: No Alcohol intake: current Alcohol intake frequency: 3 or more drinks per day Alcohol type: beer Substance/Drug Use: never Desire information about substance/drug rehabilitation?: No Counseling given: No Adopted: No Caregiver/support person: No Lives independently: Yes Household members: family Housing: House Marital status: Single Number of children: 0 Highest education level completed: 11th Grade service: No Current occupational status: unemployed Data Anesthesia Cardiac Studies: No Data to Display
--- NOTE | 2023-03-18 10:13 | W.PM.OPSUD ---
Surgery/Procedure H&P Update DATE OF PROCEDURE: March 18, 2023 DATE H&P PERFORMED: 02/22/23 H&P UPDATE INFORMATION: I have reviewed H&P completed within last 30 days, I have examined patient prior to procedure and No changes to prior documentation PREOP DIAGNOSIS: GERD, melena PLANNED PROCEDURE: Operation Date: 03/18/23 09:45 Proposed Procedures p [id number] EGD [k92.1, K21.9(Not Applicable) - Eric Dela Cruz, DO
[2023-03-18 10:26] VITALS: BP 93/59; PULSE 61; RESP 16; TEMP 36.5; O2SAT 96
[2023-03-18 10:35] VITALS: BP 94/52; PULSE 67; RESP 16; O2SAT 94
--- NOTE | 2023-03-18 10:40 | ANE.PACU2 ---
Inpatient post-anesthesia follow up: Airway intact: Yes Vital signs: Temperature 97.7 F Pulse Rate 67 Respiratory Rate 16 Blood Pressure 94/52 Pulse Oximetry 94 Oxygen Delivery Me thod Room Air Oxygen Flow Rate Fraction of Inspir ed Oxygen Hydration adequate: Yes Nausea and vomiting: No Pain level: 1 Mental status: Baseline
== END 2023-03-18 10:55 | disposition home or self-care (01) ==
PROVIDERS: PCP Student in an Organized Health Care Education/Training Program; Visit Provider Surgery
PROC: 0DJ08ZZ Inspection of Upper Intestinal Tract, Via Natural or Artificial Opening Endoscopic (ICD-10-PCS; CPT 43235; principal; 2023-03-18 09:45)
DX: K21.9 Gastro-esophageal reflux disease without esophagitis (principal); K29.50 Unspecified chronic gastritis without bleeding
CPT/HCPCS: 43239; 88305; 88342; J2704; J7030

== ENCOUNTER 2023-04-03 13:13 | Emergency (ER) | payer BC, MEDICAID, SELFPAY ==
[2023-04-03 13:19] VITALS: PULSE 64; RESP 16; TEMP 36.7; O2SAT 97; BMI 19.5
--- NOTE | 2023-04-03 14:21 | ED_ITS ---
HPI - General Adult General: Chief complaint: Abdominal Pain Stated complaint: abd pain Time Seen by Provider: 04/03/23 13:56 Source: patient Mode of arrival: ambulatory Limitations: no limitations History of Present Illness: 37yo male presents with concerns of his previously diagnosed peptic ulcer disease and gastritis. Patient reports he was here on February 12 of this year where he obtained these diagnoses. States that he was prescribed Protonix and will be taking his last dose today. Reports that he just needs to know if he needs to have a refill. States that he does have abdominal issues, but his symptoms have improved. Patient states he did have an EGD, but does not know the results of it. Patient denies any other concerns at this time. Associated symptoms: Deny chest pain or vomiting Review of Systems Const: Denies: fever(s) or chills Card: Denies: chest pain GI: Denies: abdominal pain or vomiting [facility] ED PFSH: Surgical History Hx of eye surgery left Hx of thumb surgery right Social History Smoking and tobacco status: never smoked Second hand smoke exposure: No Smoking risk assessment/counseling performed?: No Alcohol intake: current Alcohol intake frequency: 3 or more drinks per day Alcohol type: beer Substance/Drug Use: never Desire information about substance/drug rehabilitation?: No Counseling given: No Adopted: No Caregiver/support person: No Lives independently: Yes Household members: family Housing: House Marital status: Single Number of children: 0 Highest education level completed: 11th Grade service: No Current occupational status: unemployed Physical Exam Const: COMMON NORMALS: no acute distress and alert GENERAL APPEARANCE: cooperative ORIENTATION/CONSCIOUSNESS: Yes awake OTHER: Patient is ambulatory to the exam room unassisted. He is sitting upright on the stretcher no acute distress. No family is at bedside HENMT: COMMON NORMALS: normocephalic HEAD & SCALP: normocephalic Eye: GENERAL EYE: appearance normal, both eyes and all related structures Chest: CHEST: Yes Symmetrical chest wall rise Resp: COMMON NORMALS: normal respiratory effort Cardio: COMMON NORMALS: regular rate RATE: regular rate Back/Pelvis: COMMON NORMALS: thoraco-lumbar ROM normal Extremity: COMMON NORMALS: full ROM Neuro: SENSORIUM/ORIENTATION: Yes alert Psych: COMMON NORMALS: cooperative ATTITUDE: Yes calm Course Vital Signs: Vital signs: Vital Signs Temperature 98.1 F 04/03/23 13:19 Pulse Rate 64 04/03/23 13:19 Respiratory Rate 16 04/03/23 13:19 Pulse Oximetry 97 04/03/23 13:19 Oxygen Delivery Me thod Room Air 04/03/23 13:19 MDM - General Adult Medical Decision Making 37yo male here with questions as to whether he needs to continue with his previously prescribed pantoprazole due to peptic ulcer disease and gastritis. Patient reports he was seen at this ER on 02/12/2023 where he received these diagnoses as well as the prescription for pantoprazole. States that he does have a refill and he is on his last dose, but is not certain if he needs a refill. Patient reports that his symptoms have improved. States that he did have an EGD, but does not know the results of it. He denies any other concerns at this time. Patient is nontoxic in appearance. Vital signs are stable. Chart review reveals that there were no ulcers identified on the EGD from 03/18/2023. Discussed these findings with patient. Advised that he does not necessarily need to refill his pantoprazole at this time. Recommend patient continue to monitor for symptoms and if they begin, start the pantoprazole. Also encourage patient to call his doctor to discuss the EGD results. Recommend return to the emergency department if any rapid worsening symptoms and as needed. Medical Records I reviewed the patient's medical records. 03/18/23 - EGD results Discharge Plan Discharge Patient Disposition: Home Clinical Impression: Encounter for medical screening examination Condition: Stable Prescriptions: No Action pantoprazole [Protonix] 40 mg tablet,delayed release (DR/EC) 40 mg PO BID Qty: 60 1RF Discharge Orders: Discharge ED (Routine); Ordered 04/03/23 Ordered By: Florencio Bocanegra Referrals: Alesha Liang MD [Primary Care Provider] - Discharge Diet: Usual diet Discharge Activity: Resume usual activity Patient Instructions: Diet for Stomach Ulcers and Gastritis (ED) Activity Restrictions/Additional Instructions: Your endoscopy report was reviewed and there were no abnormalities found See provided handout with a diet for stomach ulcers and gastritis If your symptoms return, begin taking your Protonix again Follow-up with your doctor, call to ensure no changes needed from your endoscopy Return to the emergency department as needed Coding Level of Care Code ED Commuter Train Operator for Ollie Villalta
== END 2023-04-03 14:19 | disposition home or self-care (01) ==
PROVIDERS: Emergency Provider Nurse Practitioner; PCP Student in an Organized Health Care Education/Training Program
DX: Z00.00 Encounter for general adult medical examination without abnormal findings (principal)
CPT/HCPCS: 99282

== ENCOUNTER 2023-05-11 12:33 | Emergency (ER) | payer BC, MEDICAID, SELFPAY ==
--- NOTE | 2023-05-11 12:35 | ED_ITS ---
HPI - Abdominal Pain General: Chief Complaint: Abdominal Pain Stated Complaint: Abd Pain Time Seen by Provider: 05/11/23 12:35 History of Present Illness: 37-year-old male presents emergency department complaints of epigastric and right upper quadrant pain worsening for the previous 2 days. He states that approximately 2 months ago he did have an EGD to be evaluated for gastric ulcers by the physics technician. He states that he did receive medication at that time and has been intermittently taking Protonix to help his symptoms. He states he does have associated nausea without vomiting at present. He states that his pain is an intermittent cramping pain to the right upper quadrant that he describes as a 4 out of 10 at present. He denies fevers chills or night sweats. He denies hemataemesis or hematochezia. Associated Symptoms: Reports nausea Review of Systems General: Reports: 10 or more systems reviewed and unremarkable except in HPI and below GI: Reports: abdominal pain and nausea PFSH ED PFSH: Surgical History Hx of eye surgery left Hx of thumb surgery right Social History Smoking and tobacco status: never smoked Second hand smoke exposure: No Smoking risk assessment/counseling performed?: No Alcohol intake: current Alcohol intake frequency: 3 or more drinks per day Alcohol type: beer Substance/Drug Use: never Desire information about substance/drug rehabilitation?: No Counseling given: No Adopted: No Caregiver/support person: No Lives independently: Yes Household members: family Housing: House Marital status: Single Number of children: 0 Highest education level completed: 11th Grade service: No Current occupational status: unemployed Physical Exam Const: COMMON NORMALS: no acute distress, average body habitus, patient oriented x3 and alert HENMT: COMMON NORMALS: normocephalic, atraumatic, Normal nasal mucous membranes and turbinates present and moist oral mucous membranes HEAD & SCALP: normocephalic and atraumatic NOSE: Normal nasal mucous membranes and turbinates present Eye: COMMON NORMALS: Equal, round and reactive pupils present PUPIL: Yes Equal, round and reactive pupils present Neck/C-Spine: COMMON NORMALS: full ROM, no lymphadenopathy and no meningeal signs Chest: COMMONS NORMALS: normal inspection of the chest and normal palpation of entire chest wall Resp: COMMON NORMALS: normal respiratory effort and clear to auscultation bilaterally AUSCULTATION: clear to auscultation bilaterally Cardio: COMMON NORMALS: regular rate, regular rhythm, S1 normal heart sound present and S2 normal heart sound present RATE: regular rate RHYTHM: regular rhythm HEART SOUNDS: S1 normal heart sound present and S2 normal heart sound present GI: COMMON NORMALS: Soft to palpation INSPECTION: Yes normal to inspection AUSCULTATION: Yes normoactive bowel sounds PALPATION: Yes Soft to palpation and Yes Tenderness to palpation present (GI) Details: RUQ Back/Pelvis: COMMON NORMALS: thoracic and lumbar spine normal to inspection, no thoracic nor lumbar tenderness and thoraco-lumbar ROM normal Extremity: COMMON NORMALS: normal to inspection, full ROM and capillary refill normal Neuro: COMMON NORMALS: patient oriented x3, moves all extremities and no sensory deficits noted SENSORIUM/ORIENTATION: Yes alert MENINGEAL SIGNS: Yes no meningeal signs Skin: COMMON NORMALS: no rashes or lesions noted GENERAL SKIN EXAM: no rashes or lesions noted Course Vital Signs: Vital signs: Vital Signs Temperature 97.7 F 05/11/23 13:22 Pulse Rate 59 L 05/11/23 13:22 Respiratory Rate 16 05/11/23 13:22 Blood Pressure 151/81 05/11/23 13:22 Pulse Oximetry 98 05/11/23 13:22 Oxygen Delivery Me thod Room Air 05/11/23 12:39 MDM - Abdominal Pain Medical Decision Making Physical exam completed and documented, I will obtain laboratory evaluation to rule out infection or electrolyte abnormality. I will obtain a CT abdomen pelvis with IV contrast to evaluate the patient's concerns. I suspect most likely this is possibly related to issues with his previous peptic ulcer disease or gastritis. After reviewing the CT scan and laboratory findings I will provide the patient Carafate prescription at the time of discharge as well as discharge paperwork and recommend follow-up with his primary care provider and his physics technician. Differential Diagnosis Likely abdominal pain and gastroenteritis Medical Records I reviewed the patient's medical records. Lab Data I reviewed the patient's lab results. 05/11/23 12:50 05/11/23 12:50 Labs/Radiology: Laboratory Results WBC 6.35 10^3/uL (3.29-11.43) 05/11/23 12:50 RBC 4.81 10^6/uL (3.85-5.65) 05/11/23 12:50 Hgb 15.70 g/dL (11.27-16.99) 05/11/23 12:50 Hct 45.9 % (37-53) 05/11/23 12:50 MCV 95.4 fl (82-101) 05/11/23 12:50 MCH 32.6 pg (27-33) 05/11/23 12:50 MCHC 34.2 g/dL (30-55) 05/11/23 12:50 RDW 12.5 % (12.1-15.1) 05/11/23 12:50 Plt Count 161 10^3/cmm (157-399) 05/11/23 12:50 MPV 9.9 fL (7.4-10.4) 05/11/23 12:50 Neut % (Auto) 48.6 % 05/11/23 12:50 Lymph % (Auto) 42.5 % 05/11/23 12:50 [place] % (Auto) 5.7 % 05/11/23 12:50 Eos % (Auto) 2.5 % 05/11/23 12:50 Baso % (Auto) 0.5 % 05/11/23 12:50 Neut # (Auto) 3.09 10^3/uL (1.8-7.7) 05/11/23 12:50 Lymph # (Auto) 2.7 10^3/uL (0.8-4.8) 05/11/23 12:50 [place] # (Auto) 0.4 10^3/uL (0.2-0.9) 05/11/23 12:50 Eos # (Auto) 0.2 10^3/uL (0.0-0.8) 05/11/23 12:50 Baso # (Auto) 0.0 10^3/uL (0.0-0.1) 05/11/23 12:50 Nucleated RBC % (auto) 0 % 05/11/23 12:50 Nucleated RBCs # 0.0 /100WBC 05/11/23 12:50 Sodium 137 mmol/L (136-145) 05/11/23 12:50 Potassium 3.9 mmol/L (3.5-5.1) 05/11/23 12:50 Chloride 98 mmol/L (98-107) 05/11/23 12:50 Carbon Dioxide 28 mmol/L (22-29) 05/11/23 12:50 Anion Gap 14.9 (5-19) 05/11/23 12:50 BUN 8 mg/dL (6-20) 05/11/23 12:50 Creatinine 0.8 mg/dL (0.7-1.2) 05/11/23 12:50 GFR Calculation 109.4 mL/min (90-130) 05/11/23 12:50 Glucose 98 mg/dL (65-115) 05/11/23 12:50 Calculated Osmolality 282 mOsm/kg (285-295) L 05/11/23 12:50 Calcium 9.5 mg/dL (8.5-10.5) 05/11/23 12:50 Total Bilirubin 0.5 mg/dL (0.15-1.2) 05/11/23 12:50 AST 22 U/L (0-40) 05/11/23 12:50 ALT 14 U/L (0-41) 05/11/23 12:50 Alkaline Phosphatase 52 U/L (40-130) 05/11/23 12:50 Total Protein 7.9 g/dL (6.6-8.7) 05/11/23 12:50 Albumin 4.9 g/dL (3.5-5.2) 05/11/23 12:50 Globulin 3.0 g/dL (1.3-4.6) 05/11/23 12:50 Lipase 31 U/L (13-60) 05/11/23 12:50 Procalcitonin 0.05 ng/mL (0-0.5) 05/11/23 12:50 Urine Color Light yellow (Yellow) 05/11/23 12:50 Urine Appearance Clear (CLEAR) 05/11/23 12:50 Urine pH 6.5 (5-7) 05/11/23 12:50 Ur Specific [place] 1.010 (1.005-1.030) 05/11/23 12:50 Urine Protein Neg (Negative) 05/11/23 12:50 Urine Glucose (UA) Norm (Normal) 05/11/23 12:50 Urine Ketones Negative (Negative) 05/11/23 12:50 Urine Blood Neg (Negative) 05/11/23 12:50 Urine Nitrate Negative (Negative) 05/11/23 12:50 Urine Bilirubin Neg (Negative) 05/11/23 12:50 Urine Urobilinogen Norm mg/dL (Negative) 05/11/23 12:50 Ur Leukocyte Esterase Negative (Negative) 05/11/23 12:50 Ethyl Alcohol < 10 mg/dL (0-10) 05/11/23 12:50 All radiology interpretation(s) finalized by discharge ED provider radiology interpretation(s): 1.? Mild wall thickening and enhancement in the stomach and duodenum can be seen with gastroduodenitis. 2.? Diffuse fatty infiltration of the liver. 3.? Normal appendix in the RIGHT lower quadrant. 4.? Sigmoid diverticulosis. No evidence of acute diverticulitis. 5.? Gallbladder is contracted. 6.? No other suspicious findings. Discharge Plan Discharge Patient Disposition: Home Clinical Impression: Gastritis and gastroduodenitis Condition: Stable Prescriptions: New Carafate 1 gram tablet 1 g PO TID 28 Days Qty: 84 0RF No Action Zantac 75 75 mg Tablet 75 mg PO BID Discharge Orders: Discharge ED (Routine); Ordered 05/11/23 Ordered By: John Castillo Referrals: Alesha Liang MD [Primary Care Provider] - Discharge Diet: Advance as tolerated Discharge Activity: Resume usual activity Coding Level of Care Code ED Karate Instructor for Chg Ambar
[2023-05-11 12:39] VITALS: BP 151/81; PULSE 59; RESP 16; TEMP 36.5; O2SAT 98
--- NOTE | 2023-05-11 12:53 | CT_ITS ---
WS: [id number] CT ABDOMEN PELVIS TECHNIQUE: Contrast-enhanced CT of the abdomen and pelvis with coronal and sagittal reformatted image s. CLINICAL INFORMATION: Abdominal pain COMPARISON: None. DLP: 328.[address] scans at [facility] use at least one of these dose optimization techniques: automated e xposure control; mA and/or kV adjustment per patient size (includes targeted exams where dose is matc hed to clinical indication); or iterative reconstruction. FINDINGS: Lung bases are well aerated. Mild diffuse fatty filtration of the liver. Normal spleen. Normal GE chaparrita ction. Air-fluid level in the stomach. Air-fluid levels in the duodenum. Mild gastric and duodenal wa ll thickening and enhancement can be seen with gastroduodenitis. Gallbladder is contracted. Normal po rtal vein and splenic vein. Normal pancreatic parenchymal enhancement. Normal caliber abdominal aorta . Normal celiac and SMA. Adrenal glands are normal. Normal renal parenchyma enhancement. No hydroneph rosis. Sigmoid diverticulosis. No evidence of acute diverticulitis. No evidence of small or large bowel obst ruction. Normal appendix in the RIGHT lower quadrant.Normal lumbar spine. No other suspicious finding s. IMPRESSION: 1. Mild wall thickening and enhancement in the stomach and duodenum can be seen with gastroduodeniti s. 2. Diffuse fatty infiltration of the liver. 3. Normal appendix in the RIGHT lower quadrant. 4. Sigmoid diverticulosis. No evidence of acute diverticulitis. 5. Gallbladder is contracted. 6. No other suspicious findings.
[2023-05-11] MEDS: iohexol 350 mg/mL 500 mL Btl (per mL) IV (13:01)
[2023-05-11] MEDS: ondansetron 2 mg/ML SDV 2 mL 4 MG IVP (13:05)
[2023-05-11] MEDS: lidocaine 2% viscous 15 ML, aluminum-mag hydrox-simethicon 30 ML, sucralfate oral liq 1 GM PO (13:06)
[2023-05-11 13:12] LABS: Basophils % 0.5 %; Eosinophils # 0.2 10^3/uL (0.0-0.8); Eosinophils % 2.5 %; Hematocrit 45.9 % (37-53); Lymphocytes # 2.7 10^3/uL (0.8-4.8); Lymphocytes % 42.5 %; Mean Corpuscular HGB Conc 34.2 g/dL (30-55); Mean Corpuscular Hemoglobin 32.6 pg (27-33); Mean Corpuscular Volume 95.4 fl (82-101); Mean Platelet Volume 9.9 fL (7.4-10.4); Monocytes # 0.4 10^3/uL (0.2-0.9); Monocytes % 5.7 %; Neutrophils # 3.09 10^3/uL (1.8-7.7); Neutrophils % 48.6 %; Nucleated Red Blood Cells % 0 %; Platelet Count 161 10^3/cmm (157-399); Red Blood Count 4.81 10^6/uL (3.85-5.65); Red Cell Distribution Width 12.5 % (12.1-15.1); White Blood Count 6.35 10^3/uL (3.29-11.43)
[2023-05-11 13:22] VITALS: BP 151/81; PULSE 59; RESP 16; TEMP 36.5; O2SAT 98
[2023-05-11 13:26] LABS: Alanine Aminotransferase 14 U/L (0-41); Albumin Level 4.9 g/dL (3.5-5.2); Alkaline Phosphatase 52 U/L (40-130); Anion Gap 14.9 (5-19); Aspartate Amino Transferase 22 U/L (0-40); Blood Urea Nitrogen 8 mg/dL (6-20); Calcium 9.5 mg/dL (8.5-10.5); Carbon Dioxide 28 mmol/L (22-29); Chloride 98 mmol/L (98-107); Glomerular Filtration Rate 109.4 mL/min (90-130); Glucose 98 mg/dL (65-115); Lipase 31 U/L (13-60); Osmolality Calculated 282 mOsm/kg (285-295); Potassium 3.9 mmol/L (3.5-5.1); Sodium 137 mmol/L (136-145); Total Bilirubin 0.5 mg/dL (0.15-1.2); Total Protein 7.9 g/dL (6.6-8.7)
[2023-05-11 13:27] LABS: Alcohol Level < 10 mg/dL (0-10)
[2023-05-11 13:33] LABS: Procalcitonin 0.05 ng/mL (0-0.5)
[2023-05-11 14:14] LABS: Add Urine Microscopic? NO; Charge for UA Resulting for Rev
[2023-05-11 14:22] LABS: Bilirubin Urine Neg (Negative); Blood Urine Neg (Negative); Glucose Urine UA Norm (Normal); Ketones Urine Negative (Negative); Leukocyte Esterase Urine Negative (Negative); Nitrate Urine Negative (Negative); Protein Urine Neg (Negative); Urine Appearance Clear (CLEAR); Urine Color Light yellow (Yellow); Urobilinogen Urine Norm (Negative); pH Urine 6.5 (5-7)
== END 2023-05-11 15:29 | disposition home or self-care (01) ==
PROVIDERS: Emergency Provider Internal Medicine; PCP Student in an Organized Health Care Education/Training Program
DX: K29.70 Gastritis, unspecified, without bleeding (principal); K29.90 Gastroduodenitis, unspecified, without bleeding; K57.30 Diverticulosis of large intestine without perforation or abscess without bleeding
CPT/HCPCS: 74177; 80053; 80307; 81003; 83690; 84145; 85025; 96374; 99285; J2405; Q9967

== ENCOUNTER 2023-05-24 07:54 | Emergency (ER) | payer BC, MEDICAID, SELFPAY ==
[2023-05-24 07:55] VITALS: BP 160/94; PULSE 77; RESP 18; TEMP 36.7; O2SAT 94; BMI 18.8
[2023-05-24 08:16] VITALS: BP 156/88; PULSE 54; RESP 16; O2SAT 100
[2023-05-24 08:19] LABS: Basophils % 0.6 %; Eosinophils # 0.2 10^3/uL (0.0-0.8); Eosinophils % 3.1 %; Hematocrit 50.9 % (37-53); Lymphocytes # 1.9 10^3/uL (0.8-4.8); Lymphocytes % 38.3 %; Mean Corpuscular HGB Conc 34.8 g/dL (30-55); Mean Corpuscular Hemoglobin 32.5 pg (27-33); Mean Corpuscular Volume 93.4 fl (82-101); Mean Platelet Volume 9.9 fL (7.4-10.4); Monocytes # 0.3 10^3/uL (0.2-0.9); Monocytes % 5.9 %; Neutrophils # 2.53 10^3/uL (1.8-7.7); Neutrophils % 51.9 %; Nucleated Red Blood Cells % 0 %; Platelet Count 163 10^3/cmm (157-399); Red Blood Count 5.45 10^6/uL (3.85-5.65); Red Cell Distribution Width 12.4 % (12.1-15.1); White Blood Count 4.88 10^3/uL (3.29-11.43)
[2023-05-24] MEDS: sodium chloride 0.9% 1,000 ML 999 ML IV (08:29)
--- NOTE | 2023-05-24 08:29 | W.ED.ABDPA2 ---
HPI - Abdominal Pain General: Chief Complaint: Abdominal Pain Stated Complaint: abd pain Time Seen by Provider: 05/24/23 07:56 Source: patient Mode of arrival: ambulatory History of Present Illness: 37-year-old male who presents to the emergency room with complaints of right upper quadrant abdominal pain. He has a history of reflux states he was previously on proton pump inhibitor but stopped. About a month ago he had an EGD that he was told was essentially normal. He was seen here 2 weeks ago had a CT Abdomen and pelvis. Showed mild inflammation of the stomach and duodenum but otherwise was unremarkable. He has been taking Carafate since he denies hematochezia melena hematemesis coffee-ground emesis. No fevers sweats or chills. MD elicited complaint: abdominal pain Onset (ago): day(s) Pain Consistency: intermittent Severity: mild Quality: cramping Exacerbating factors: nothing Relieving factors: nothing Associated Symptoms: Reports GI cramping; Denies bloating, chills, coffee ground emesis, diarrhea, dysuria, fever(s), hematemesis, loose stools, melena, nausea and poor appetite Review of Systems Const: Denies: fever(s) or chills Card: Denies: chest pain Resp: Denies: dyspnea GI: Reports: abdominal pain and GI cramping; Denies: nausea, hematemesis, coffee ground emesis, diarrhea, bloating or melena : Denies: dysuria, urinary frequency or urinary urgency Musc: Denies: neck pain or back pain Skin/Breast: Denies: rash PFSH ED PFSH: Surgical History Hx of eye surgery left Hx of thumb surgery right Social History Smoking and tobacco/nicotine status: never used tobacco/nicotine Second hand smoke exposure: No Alcohol intake: current Alcohol intake frequency: 3 or more drinks per day Alcohol type: beer Substance/Drug Use: never Adopted: No Caregiver/support person: No Lives independently: Yes Household members: family Housing: House Marital status: Single Number of children: 0 Highest education level completed: 11th Grade service: No Current occupational status: unemployed Physical Exam Const: GENERAL APPEARANCE: cooperative and comfortable ORIENTATION/CONSCIOUSNESS: Yes awake, Yes oriented to person, Yes oriented to place and Yes oriented to time HENMT: COMMON NORMALS: normocephalic, atraumatic and hearing grossly normal bilaterally HEAD & SCALP: normocephalic and atraumatic Resp: COMMON NORMALS: normal respiratory effort, No retractions, No use of accessory muscles and clear to auscultation bilaterally AUSCULTATION: clear to auscultation bilaterally Cardio: COMMON NORMALS: regular rate, regular rhythm and No murmurs present (Cardio) RATE: regular rate RHYTHM: regular rhythm GI: COMMON NORMALS: Soft to palpation and No hepatosplenomegaly present AUSCULTATION: Yes normoactive bowel sounds PALPATION: Yes Soft to palpation, No Tenderness to palpation present (GI), No Guarding due to palpation present (GI) and Yes No hepatosplenomegaly present OTHER: Rectus diastasis Extremity: COMMON NORMALS: normal to inspection, capillary refill normal, no clubbing, cyanosis or edema, no calf tenderness and no pedal edema Neuro: SENSORIUM/ORIENTATION: Yes oriented to person, Yes oriented to place and Yes oriented to time Skin: COMMON NORMALS: no rashes or lesions noted GENERAL SKIN EXAM: no rashes or lesions noted Course Vital Signs: Vital signs: Vital Signs Temperature 98.1 F 05/24/23 07:55 Pulse Rate 55 L 05/24/23 10:05 Respiratory Rate 16 05/24/23 10:05 Blood Pressure 156/88 05/24/23 08:16 Pulse Oximetry 100 05/24/23 10:05 Oxygen Delivery Me thod Room Air 05/24/23 10:05 MDM - Abdominal Pain Medical Decision Making Labs reviewed no acute findings previous CT showed gastritis duodenitis. Recommend he go back on the proton pump inhibitor use still Carafate as needed modified diet follow-up with primary care Medical Records I reviewed the patient's medical records. Lab Data I reviewed the patient's lab results. 05/24/23 08:03 05/24/23 08:03 Labs/Radiology: Laboratory Results WBC 4.88 10^3/uL (3.29-11.43) 05/24/23 08:03 RBC 5.45 10^6/uL (3.85-5.65) 05/24/23 08:03 Hgb 17.70 g/dL (11.27-16.99) H 05/24/23 08:03 Hct 50.9 % (37-53) 05/24/23 08:03 MCV 93.4 fl (82-101) 05/24/23 08:03 MCH 32.5 pg (27-33) 05/24/23 08:03 MCHC 34.8 g/dL (30-55) 05/24/23 08:03 RDW 12.4 % (12.1-15.1) 05/24/23 08:03 Plt Count 163 10^3/cmm (157-399) 05/24/23 08:03 MPV 9.9 fL (7.4-10.4) 05/24/23 08:03 Neut % (Auto) 51.9 % 05/24/23 08:03 Lymph % (Auto) 38.3 % 05/24/23 08:03 [place] % (Auto) 5.9 % 05/24/23 08:03 Eos % (Auto) 3.1 % 05/24/23 08:03 Baso % (Auto) 0.6 % 05/24/23 08:03 Neut # (Auto) 2.53 10^3/uL (1.8-7.7) 05/24/23 08:03 Lymph # (Auto) 1.9 10^3/uL (0.8-4.8) 05/24/23 08:03 [place] # (Auto) 0.3 10^3/uL (0.2-0.9) 05/24/23 08:03 Eos # (Auto) 0.2 10^3/uL (0.0-0.8) 05/24/23 08:03 Baso # (Auto) 0.0 10^3/uL (0.0-0.1) 05/24/23 08:03 Nucleated RBC % (auto) 0 % 05/24/23 08:03 Nucleated RBCs # 0.0 /100WBC 05/24/23 08:03 Sodium 141 mmol/L (136-145) 05/24/23 08:03 Potassium 4.2 mmol/L (3.5-5.1) 05/24/23 08:03 Chloride 100 mmol/L (98-107) 05/24/23 08:03 Carbon Dioxide 30 mmol/L (22-29) H 05/24/23 08:03 Anion Gap 15.2 (5-19) 05/24/23 08:03 BUN 10 mg/dL (6-20) 05/24/23 08:03 Creatinine 1.0 mg/dL (0.7-1.2) 05/24/23 08:03 GFR Calculation 84.5 mL/min (90-130) L 05/24/23 08:03 Glucose 96 mg/dL (65-115) 05/24/23 08:03 Calculated Osmolality 291 mOsm/kg (285-295) 05/24/23 08:03 Calcium 10.2 mg/dL (8.5-10.5) 05/24/23 08:03 Total Bilirubin 1.0 mg/dL (0.15-1.2) 05/24/23 08:03 AST 30 U/L (0-40) 05/24/23 08:03 ALT 19 U/L (0-41) 05/24/23 08:03 Alkaline Phosphatase 54 U/L (40-130) 05/24/23 08:03 Total Protein 8.8 g/dL (6.6-8.7) H 05/24/23 08:03 Albumin 5.5 g/dL (3.5-5.2) H 05/24/23 08:03 Globulin 3.3 g/dL (1.3-4.6) 05/24/23 08:03 Lipase 29 U/L (13-60) 05/24/23 08:03 Urine Color Yellow (Yellow) 05/24/23 09:19 Urine Appearance Clear (CLEAR) 05/24/23 09:19 Urine pH 8 (5-7) H 05/24/23 09:19 Ur Specific [place] 1.015 (1.005-1.030) 05/24/23 09:19 Urine Protein 2+ (Negative) H 05/24/23 09:19 Urine Glucose (UA) Norm (Normal) 05/24/23 09:19 Urine Ketones 1+ (Negative) H 05/24/23 09:19 Urine Blood Neg (Negative) 05/24/23 09:19 Urine Nitrate Negative (Negative) 05/24/23 09:19 Urine Bilirubin Neg (Negative) 05/24/23 09:19 Prot Sulfosalicylic Acd Positive (Negative) 05/24/23 09:19 Urine Urobilinogen Norm mg/dL (Negative) 05/24/23 09:19 Ur Leukocyte Esterase Negative (Negative) 05/24/23 09:19 Urine RBC 0-4 /hpf (0-2) H 05/24/23 09:19 Urine WBC 0-4 /hpf (0-5) H 05/24/23 09:19 Ur Squamous Epith Cells 0-4 /hpf (0-5) H 05/24/23 09:19 Amorphous Sediment Not Reportable 05/24/23 09:19 Urine Bacteria Trace /hpf (NONE) 05/24/23 09:19 Hyaline Casts 0-4 /lpf H 05/24/23 09:19 Urine Mucus Trace /hpf 05/24/23 09:19 No radiology studies performed this visit Discharge Plan Discharge Patient Disposition: Home Clinical Impression: GERD (gastroesophageal reflux disease) Condition: Stable Prescriptions: New pantoprazole 40 mg tablet,delayed release (DR/EC) 40 mg PO DAILY 28 Days Qty: 30 0RF Discontinued famotidine [Zantac-360 (famotidine)] 20 mg Tablet 20 mg PO BID No Action sucralfate [Carafate] 1 gram tablet 1 g PO TID 28 Days Qty: 84 0RF Discharge Orders: Discharge ED (Routine); Ordered 05/24/23 Ordered By: Alberto Dotson Referrals: Alesha Liang MD [Primary Care Provider] - Discharge Diet: As Directed Discharge Activity: Resume usual activity Patient Instructions: Diet for Stomach Ulcers and Gastritis (ED), GERD (Gastroesophageal Reflux Disease) (ED), Opioid Safety, Pain Management Activity Restrictions/Additional Instructions: Follow-up with your doctor in the next 7 to 14 days to review weight loss. Coding Level of Care Code ED Senior Product Marketing Manager for Ollie Villalta
[2023-05-24 08:36] VITALS: PULSE 58; RESP 16; O2SAT 97
[2023-05-24 08:53] LABS: Alanine Aminotransferase 19 U/L (0-41); Albumin Level 5.5 g/dL (3.5-5.2); Alkaline Phosphatase 54 U/L (40-130); Anion Gap 15.2 (5-19); Aspartate Amino Transferase 30 U/L (0-40); Blood Urea Nitrogen 10 mg/dL (6-20); Calcium 10.2 mg/dL (8.5-10.5); Carbon Dioxide 30 mmol/L (22-29); Chloride 100 mmol/L (98-107); Globulin 3.3 g/dL (1.3-4.6); Glomerular Filtration Rate 84.5 mL/min (90-130); Glucose 96 mg/dL (65-115); Lipase 29 U/L (13-60); Osmolality Calculated 291 mOsm/kg (285-295); Potassium 4.2 mmol/L (3.5-5.1); Sodium 141 mmol/L (136-145); Total Protein 8.8 g/dL (6.6-8.7)
[2023-05-24] MEDS: lidocaine 2% viscous 15 ML, aluminum-mag hydrox-simethicon 30 ML, sucralfate oral liq 1 GM PO (09:18)
[2023-05-24 09:58] LABS: Add Urine Microscopic? YES; Bilirubin Urine Neg (Negative); Blood Urine Neg (Negative); Glucose Urine UA Norm (Normal); Ketones Urine 1+ (Negative); Leukocyte Esterase Urine Negative (Negative); Nitrate Urine Negative (Negative); Protein Urine 2+ (Negative); Specific Gravity, Urine 1.015 (1.005-1.030); Sulfosalicylic Acid Urine Positive (Negative); Urine Appearance Clear (CLEAR); Urine Color Yellow (Yellow); Urobilinogen Urine Norm (Negative); pH Urine 8 (5-7)
[2023-05-24 10:03] LABS: Bacteria Urine TRACE /hpf; Hyaline Casts Urine 0-4 /lpf; Mucus Urine TRACE /hpf; RBC Urine 0-4 /hpf (0-2); Squamous Epithelial Cell Urine 0-4 /hpf (0-5); WBC Urine 0-4 /hpf (0-5)
[2023-05-24 10:04] LABS: Add Urine Culture? No
[2023-05-24 10:05] VITALS: PULSE 55; RESP 16; O2SAT 100
== END 2023-05-24 10:30 | disposition home or self-care (01) ==
PROVIDERS: Emergency Provider Family Medicine; PCP Student in an Organized Health Care Education/Training Program
DX: K21.9 Gastro-esophageal reflux disease without esophagitis (principal)
CPT/HCPCS: 80053; 81001; 83690; 85025; 96360; 96361; 99284; J7030

== ENCOUNTER 2023-06-03 09:49 | Outpatient (CLI) | payer BC, MEDICAID, SELFPAY ==
--- NOTE | 2023-06-03 10:00 | NM_ITS ---
WS: [id number] NUCLEAR MEDICINE HIDA SCAN CLINICAL INFORMATION: Abd Pain TECHNIQUE: Following intravenous administration of mCi of technetium 99m mebrofenin, images of the ab domen were obtained over the course of 60 minutes. Next, gallbladder ejection fraction was determined by obtaining preprandial and one-hour postprandial images of the gallbladder following oral ingestio n of Ensure. COMPARISON: CT 05/11/23 FINDINGS: Normal hepatic uptake at 5 minutes. Hepatomegaly. Gallbladder is visualized at 15 minutes. No evidenc e of acute cholecystitis. Normal hepatic excretion. Normal common bile duct and small bowel activity. Gallbladder ejection fraction is 66% within normal limits. No evidence of chronic cholecystitis. IMPRESSION: 1. No evidence of acute or chronic cholecystitis. 2. Gallbladder ejection fraction is 66% within normal limits.
== END 2023-06-03 09:50 | disposition home or self-care (01) ==
LOC: RAD 09:49
PROVIDERS: PCP Student in an Organized Health Care Education/Training Program; Visit Provider Surgery
DX: R10.11 Right upper quadrant pain (principal)
CPT/HCPCS: 78227; A9537

== ENCOUNTER 2023-07-19 16:09 | Emergency (ER) | payer BC, MEDICAID, SELFPAY ==
[2023-07-19 16:18] VITALS: BP 148/82; PULSE 78; RESP 18; TEMP 36.7; O2SAT 100
--- NOTE | 2023-07-19 16:29 | XRR_ITS ---
PROCEDURE INFORMATION: Exam: XR Lumbosacral Spine Exam date and time: 07/19/2023 4:42 PM Age: 37 years old Clinical indication: Low back pain TECHNIQUE: Imaging protocol: Radiologic exam of the lumbosacral spine. Views: 2 or 3 views. COMPARISON: CT abdomen pelvis w con* [id number] 05/11/2023 1:39 PM FINDINGS: Bones/joints: No acute fracture or malalignment. Mild L5-S1 spondylosis. Soft tissues: No acute findings. XR/XR lumbar spine 2-3V* [id number] IMPRESSION: Mild L5-S1 spondylosis.
--- NOTE | 2023-07-19 16:35 | W.ED.BACK ---
HPI - Back Pain/Injury General: Chief Complaint: Back Pain/Injury Stated Complaint: lower back pain Time Seen by Provider: 07/19/23 16:18 Source: patient Mode of arrival: ambulatory Limitations: no limitations History of Present Illness: 37-year-old male who has a history of low back pain states sciatica in the past. States over the last 7 days has been having left back pain that radiates down his leg. He states this feels like his previous sciatica states is worse with movement improved with rest denies any bowel or bladder incontinence. He rates the pain a 4 out of 10 currently. Denies any known injuries. Associated symptoms: Deny abdominal pain, chills, fever(s), nausea or vomiting Review of Systems Const: Denies: fever(s), chills, body aches or change in appetite ENMT: Denies: throat pain or dental pain Card: Denies: chest pain Resp: Denies: dyspnea GI: Denies: abdominal pain, nausea, vomiting or diarrhea Musc: Reports: back pain; Denies: neck pain Skin/Breast: Denies: rash Neuro: Denies: headache(s) PFSH ED PFSH: Surgical History Hx of thumb surgery right Hx of eye surgery left Social History Smoking and tobacco/nicotine status: never used tobacco/nicotine Second hand smoke exposure: No Alcohol intake: current Alcohol intake frequency: 3 or more drinks per day Alcohol type: beer Substance/Drug Use: never Adopted: No Caregiver/support person: No Lives independently: Yes Household members: family Housing: House Marital status: Single Number of children: 0 Highest education level completed: 11th Grade service: No Current occupational status: unemployed Physical Exam Const: COMMON NORMALS: no acute distress, patient oriented x3 and healthy appearing HENMT: COMMON NORMALS: normocephalic and atraumatic HEAD & SCALP: normocephalic and atraumatic Neck/C-Spine: COMMON NORMALS: full ROM and supple Chest: COMMONS NORMALS: normal inspection of the chest Resp: COMMON NORMALS: normal respiratory effort Cardio: COMMON NORMALS: regular rate, regular rhythm and No murmurs present (Cardio) RATE: regular rate RHYTHM: regular rhythm Back/Pelvis: OTHER: Tenderness over left lower back no midline tenderness no saddle anesthesia Extremity: COMMON NORMALS: normal to inspection and full ROM Neuro: COMMON NORMALS: patient oriented x3, moves all extremities and no focal motor deficits Psych: COMMON NORMALS: mental status grossly normal, Normal thought process present and cooperative THOUGHT PROCESS: Normal thought process present Skin: COMMON NORMALS: no rashes or lesions noted and no wounds GENERAL SKIN EXAM: no rashes or lesions noted Course Vital Signs: Vital signs: Vital Signs Temperature 98.1 F 07/19/23 16:18 Pulse Rate 78 07/19/23 16:18 Respiratory Rate 18 07/19/23 16:18 Blood Pressure 148/82 07/19/23 16:18 Pulse Oximetry 100 07/19/23 16:18 Oxygen Delivery Me thod Room Air 07/19/23 16:18 MDM - Back Pain/Injury Medical Decision Making Patient presents here with low back pain with sciatica he has no signs of cord compression or epidural abscess we will place him on steroids along with muscle relaxant he is to follow-up with orthopedics as scheduled return if worsening. Medical Records I reviewed the patient's medical records. XR interpretation done by ED provider, pending radiology final review ED provider radiology interpretation(s): xr l spine: no acute abnormality Discharge Plan Discharge Patient Disposition: Home Clinical Impression: Low back pain Qualifiers: Chronicity: acute Back pain laterality: left Sciatica presence: with sciatica Sciatica laterality: sciatica of left side Qualified Code(s): M54.42 - Lumbago with sciatica, left side Condition: Stable Prescriptions: New methocarbamol 750 mg tablet 750 mg PO Q6H PRN (Reason: spasms) Qty: 20 0RF prednisone 50 mg tablet 50 mg PO DAILY Qty: 5 0RF No Action pantoprazole [Protonix] 40 mg tablet,delayed release (DR/EC) 40 mg PO DAILY Discharge Orders: Discharge ED (Routine); Ordered 07/19/23 Ordered By: Christine Pickard Referrals: Eric Dela Cruz DO [Primary Care Provider] - Discharge Diet: Advance as tolerated Discharge Activity: Resume usual activity Patient Instructions: Sciatica (ED) Coding Level of Care Code ED Painting And Coating Worker for Ollie Villalta
[2023-07-19] MEDS: predniSONE 20 mg Tablet 60 MG PO (16:38)
== END 2023-07-19 16:57 | disposition home or self-care (01) ==
PROVIDERS: Emergency Provider Emergency Medicine; PCP Surgery
DX: M54.42 Lumbago with sciatica, left side (principal)
CPT/HCPCS: 72100; 99283; J7512

== ENCOUNTER 2023-08-03 14:45 | Emergency (ER) | payer BC, MEDICAID, SELFPAY ==
[2023-08-03 15:09] VITALS: BP 148/103; PULSE 60; RESP 16; TEMP 37.1; O2SAT 100; BMI 19.5
--- NOTE | 2023-08-03 17:22 | ED_ITS ---
HPI - Male Genitourinary General: Chief complaint: Urogenital-Male Stated complaint: borja when urinating Time Seen by Provider: 08/03/23 15:47 History of Present Illness: 37-year-old male patient comes in today with burning on urination for the last 4 days. Patient had talked with a director data processing and was concerned that he may be getting a urinary tract infection and may get sepsis. Patient appears nontoxic. Patient reports no recent intercourse. Patient reports the pain is worse after ejaculation. Patient appears nontoxic. Patient appears in no pain at rest. Associated symptoms: Reports dysuria Review of Systems General: Reports: 10 or more systems reviewed and unremarkable except in HPI and below : Reports: dysuria PFSH ED PFSH: Surgical History Hx of thumb surgery right Hx of eye surgery left Social History Smoking and tobacco/nicotine status: never used tobacco/nicotine Second hand smoke exposure: No Alcohol intake: current Alcohol intake frequency: 3 or more drinks per day Alcohol type: beer Substance/Drug Use: never Adopted: No Caregiver/support person: No Lives independently: Yes Household members: family Housing: House Marital status: Single Number of children: 0 Highest education level completed: 11th Grade service: No Current occupational status: unemployed Physical Exam Const: COMMON NORMALS: alert HENMT: COMMON NORMALS: normocephalic HEAD & SCALP: normocephalic Neck/C-Spine: COMMON NORMALS: full ROM Resp: COMMON NORMALS: normal respiratory effort Cardio: COMMON NORMALS: regular rate RATE: regular rate GI: COMMON NORMALS: Soft to palpation PALPATION: Yes Soft to palpation : COMMON NORMALS: Yes no CVA tenderness BLADDER/KIDNEY EXAM: Yes no CVA tenderness Back/Pelvis: COMMON NORMALS: no CVA tenderness Extremity: COMMON NORMALS: normal to inspection Neuro: SENSORIUM/ORIENTATION: Yes alert Skin: COMMON NORMALS: turgor normal GENERAL SKIN EXAM: turgor normal Course Vital Signs: Vital signs: Vital Signs Temperature 98.7 F 08/03/23 18:44 Pulse Rate 67 08/03/23 18:44 Respiratory Rate 16 08/03/23 18:44 Blood Pressure 155/92 08/03/23 18:44 Pulse Oximetry 98 08/03/23 18:44 Oxygen Delivery Me thod Room Air 08/03/23 15:09 MDM - Male Medical Decision Making 37-year-old male patient comes in today with urinary discomfort. Patient appears nontoxic. Patient reports no fever or chills. On exam abdomen soft nontender. No CVA tenderness. Patient refused genital exam. Differential diagnosis includes not limited to urethritis, prostatitis, STI. Urinalysis was clean. Outstanding gonorrhea and Chlamydia testing per urine. Patient was started on doxycycline 100 mg twice a day for 10 days. Encourage plenty of fluids and follow-up with primary care. Lab Data Laboratory Results Urine Color Colorless (Yellow) 08/03/23 17:15 Urine Appearance Clear (CLEAR) 08/03/23 17:15 Urine pH 7 (5-7) 08/03/23 17:15 Ur Specific [place] 1.010 (1.005-1.030) 08/03/23 17:15 Urine Protein Neg (Negative) 08/03/23 17:15 Urine Glucose (UA) Norm (Normal) 08/03/23 17:15 Urine Ketones Negative (Negative) 08/03/23 17:15 Urine Blood Neg (Negative) 08/03/23 17:15 Urine Nitrate Negative (Negative) 08/03/23 17:15 Urine Bilirubin Neg (Negative) 08/03/23 17:15 Urine Urobilinogen Norm mg/dL (Negative) 08/03/23 17:15 Ur Leukocyte Esterase Negative (Negative) 08/03/23 17:15 No radiology studies performed this visit Discharge Plan Discharge Patient Disposition: Home Clinical Impression: Urethritis, not sexually transmitted Condition: Stable Prescriptions: New doxycycline hyclate 100 mg capsule 100 mg PO BID 10 Days Qty: 20 0RF No Action pantoprazole [Protonix] 40 mg tablet,delayed release (DR/EC) 40 mg PO DAILY methocarbamol 750 mg tablet 750 mg PO Q6H PRN (Reason: spasms) Qty: 20 0RF prednisone 50 mg tablet 50 mg PO DAILY Qty: 5 0RF Discharge Orders: Discharge ED (Routine); Ordered 08/03/23 Ordered By: Justus Hurley Referrals: Eric Dela Cruz DO [Primary Care Provider] - Discharge Diet: Usual diet Discharge Activity: Increase activity as tolerated Patient Instructions: Nonspecific Urethritis in Men (ED) Activity Restrictions/Additional Instructions: Drink plenty water and fluids. Take antibiotic as directed for the next 10 days. Will contact you regarding culture results if antibiotic does not cover infection. Follow-up with primary care in 1 week for recheck. Return to ED for new concerns. Coding Level of Care Code ED Manufacturing Machine Operator for Ollie Villalta
[2023-08-03 18:25] LABS: Add Urine Microscopic? NO; Bilirubin Urine Neg (Negative); Blood Urine Neg (Negative); Glucose Urine UA Norm (Normal); Ketones Urine Negative (Negative); Leukocyte Esterase Urine Negative (Negative); Nitrate Urine Negative (Negative); Protein Urine Neg (Negative); Urine Appearance Clear (CLEAR); Urine Color Colorless (Yellow); Urobilinogen Urine Norm (Negative); pH Urine 7 (5-7)
[2023-08-03 18:26] LABS: Charge for UA Resulting for Rev
[2023-08-03 18:44] VITALS: BP 155/92; PULSE 67; RESP 16; TEMP 37.1; O2SAT 98
[2023-08-03] MEDS: doxycycline 100 mg Tablet PO (18:44)
[2023-08-05 15:15] LABS: Trichomonas Vaginalis RNA NOT DETECTED (NOT DETECTED)
[2023-08-05 15:24] LABS: Chlamydia Trachomatis RNA TMA NOT DETECTED (NOT DETECTED); Neisseria Gonorrhoeae RNA, TMA NOT DETECTED (NOT DETECTED)
== END 2023-08-03 18:45 | disposition home or self-care (01) ==
PROVIDERS: Emergency Medicine; Emergency Provider Nurse Practitioner Family; PCP Surgery
DX: N34.2 Other urethritis (principal)
CPT/HCPCS: 81003; 87491; 87591; 99283

== ENCOUNTER 2023-08-06 20:03 | Emergency (ER) | payer BC, MEDICAID, SELFPAY ==
[2023-08-06 20:06] VITALS: BP 154/89; PULSE 98; RESP 14; TEMP 36.9; O2SAT 98; BMI 19.5
[2023-08-06 20:59] VITALS: BP 153/92; PULSE 76; RESP 16; TEMP 37; O2SAT 98
--- NOTE | 2023-08-06 21:02 | CTR_ITS ---
PROCEDURE INFORMATION: Exam: CT Head Without Contrast Exam date and time: 08/06/2023 9:25 PM Age: 37 years old Clinical indication: Stroke-like symptoms; Headache and visual disturbance; Additional info: ESCOBAR TECHNIQUE: Imaging protocol: Computed tomography of the head without contrast. Radiation optimization: All CT scans at this facility use at least one of these dose optimization techniques: automated exposure control; mA and/or kV adjustment per patient size (includes targeted exams where dose is matched to clinical indication); or iterative reconstruction. Other technique: STROKE PROTOCOL was implemented. REPORTING DATA: Count of CT and Cardiac NM exams in prior 12 months: This patient has received [address] and 0 known cardiac nuclear medicine studies in the 12 months prior to the current study. COMPARISON: No relevant prior studies available. RADIATION DOSE METRICS: Total DLP (mGy-cm): 973.18 FINDINGS: Brain: No hemorrhage. Unremarkable white matter. No mass effect. Preserved espinosa-white interfaces. Cerebral ventricles: No ventriculomegaly. Paranasal sinuses: Visualized sinuses are unremarkable. No fluid levels. Mastoid air cells: Visualized mastoid air cells are well aerated. Bones/joints: Unremarkable. No acute fracture. Soft tissues: Unremarkable. CT/CT head wo con* [id number] IMPRESSION: No evidence of acute intracranial hemorrhage, mass effect, or edema. ASSESSMENT: ASPECTS ([place] Stroke Program Early CT Score) is 10.
--- NOTE | 2023-08-06 21:03 | W.ED.HA ---
HPI - Headache General: Chief Complaint: Headache Stated Complaint: headache Time Seen by Provider: 08/06/23 20:56 Source: patient Mode of arrival: ambulatory Limitations: no limitations History of Present Illness: 37-year-old male states has been having a headache for the last 2 days has had a history of headaches states that this 1 just feels different starts in the back of his head he has had some blurred vision at times denies any at this time. Denies any vomiting diarrhea denies any worsening proving factors denies any fevers Associated symptoms: Deny chest pain, fever(s), nausea, rash or vomiting Review of Systems Const: Denies: fever(s), chills, body aches or change in appetite Eyes: Reports: blurry vision; Denies: eye discomfort ENMT: Denies: throat pain or dental pain Card: Denies: chest pain Resp: Denies: dyspnea GI: Denies: abdominal pain, nausea, vomiting or diarrhea Musc: Denies: neck pain or back pain Skin/Breast: Denies: rash Neuro: Reports: headache(s) PFSH ED PFSH: Surgical History Hx of thumb surgery right Hx of eye surgery left Social History Smoking and tobacco/nicotine status: never used tobacco/nicotine Second hand smoke exposure: No Alcohol intake: current Alcohol intake frequency: 3 or more drinks per day Alcohol type: beer Substance/Drug Use: never Adopted: No Caregiver/support person: No Lives independently: Yes Household members: family Housing: House Marital status: Single Number of children: 0 Highest education level completed: 11th Grade service: No Current occupational status: unemployed Physical Exam Const: COMMON NORMALS: no acute distress, patient oriented x3 and healthy appearing HENMT: COMMON NORMALS: normocephalic and atraumatic HEAD & SCALP: normocephalic and atraumatic Eye: COMMON NORMALS: Equal, round and reactive pupils present and EOMs intact bilaterally PUPIL: Yes Equal, round and reactive pupils present Neck/C-Spine: COMMON NORMALS: full ROM and supple Chest: COMMONS NORMALS: normal inspection of the chest and normal palpation of entire chest wall Resp: COMMON NORMALS: normal respiratory effort, No retractions, No use of accessory muscles and clear to auscultation bilaterally AUSCULTATION: clear to auscultation bilaterally Cardio: COMMON NORMALS: regular rate, regular rhythm and No murmurs present (Cardio) RATE: regular rate RHYTHM: regular rhythm GI: COMMON NORMALS: Normal to inspection, nondistended, normoactive bowel sounds present, Soft to palpation, non-tender and no masses PALPATION: Yes Soft to palpation Extremity: COMMON NORMALS: normal to inspection and full ROM Neuro: COMMON NORMALS: patient oriented x3, moves all extremities and no focal motor deficits Psych: COMMON NORMALS: mental status grossly normal, Normal thought process present and cooperative THOUGHT PROCESS: Normal thought process present Skin: COMMON NORMALS: no rashes or lesions noted and no wounds GENERAL SKIN EXAM: no rashes or lesions noted Course Vital Signs: Vital signs: Vital Signs Temperature 98.6 F 08/06/23 20:59 Pulse Rate 76 08/06/23 20:59 Respiratory Rate 16 08/06/23 20:59 Blood Pressure 153/92 08/06/23 20:59 Pulse Oximetry 98 08/06/23 20:59 MDM - Headache Medical Decision Making Patient presents here with a headache no signs of meningitis or subarachnoid hemorrhage he is well-appearing here he is stable for discharge he is to follow-up with PCP and return if worsening. Medical Records I reviewed the patient's medical records. All radiology interpretation(s) finalized by discharge Discharge Plan Discharge Patient Disposition: Home Clinical Impression: Headache Qualifiers: Headache type: unspecified Headache chronicity pattern: unspecified pattern Intractability: not intractable Qualified Code(s): R51.9 - Headache, unspecified Condition: Stable Prescriptions: No Action pantoprazole [Protonix] 40 mg tablet,delayed release (DR/EC) 40 mg PO DAILY methocarbamol 750 mg tablet 750 mg PO Q6H PRN (Reason: spasms) Qty: 20 0RF prednisone 50 mg tablet 50 mg PO DAILY Qty: 5 0RF doxycycline hyclate 100 mg capsule 100 mg PO BID 10 Days Qty: 20 0RF Discharge Orders: Discharge ED (Routine); Ordered 08/06/23 Ordered By: Christine Pickard Referrals: Eric Dela Cruz DO [Primary Care Provider] - Discharge Diet: Advance as tolerated Discharge Activity: Resume usual activity Patient Instructions: Headache Coding Level of Care Code ED Director Of Market Intelligence for Chg Ambar
[2023-08-06] MEDS: diphenhydrAMINE 50 mg/mL SDV 1mL IM (21:19)
[2023-08-06] MEDS: metoclopramide 5 mg/mL SDV 2 mL 10 MG IM (21:19)
[2023-08-06 21:45] VITALS: PULSE 84; RESP 16; O2SAT 96
== END 2023-08-06 21:43 | disposition home or self-care (01) ==
PROVIDERS: Emergency Provider Emergency Medicine; PCP Surgery
DX: R51.9 Headache, unspecified (principal)
CPT/HCPCS: 70450; 96372; 99284; J1200; J2765

== ENCOUNTER 2023-08-14 08:47 | Inpatient (IN) | payer BC, SELFPAY ==
[2023-08-14 08:50] VITALS: BP 150/98; PULSE 65; RESP 18; TEMP 36.5; O2SAT 99; BMI 19.5
[2023-08-14 09:03] LABS: Add Urine Microscopic? NO; Charge for UA Resulting for Rev
[2023-08-14 09:13] LABS: Amphetamines Screen Urine Negative (Negative); Barbiturates Screen Urine Negative (Negative); Benzodiazepines Screen Urine Negative (Negative); Cocaine Screen Urine Negative (Negative); Opiate Screen Urine Negative (Negative); PCP Screen Urine Negative (Negative); THC Screen Urine Positive (Negative)
[2023-08-14 09:22] LABS: Bilirubin Urine Neg (Negative); Blood Urine Neg (Negative); Glucose Urine UA Norm (Normal); Ketones Urine Negative (Negative); Leukocyte Esterase Urine Negative (Negative); Nitrate Urine Negative (Negative); Protein Urine Neg (Negative); Urine Appearance Clear (CLEAR); Urine Color Yellow (Yellow); Urobilinogen Urine Norm (Negative); pH Urine 7 (5-7)
[2023-08-14 09:25] LABS: Basophils % 0.2 %; Eosinophils % 0.2 %; Lymphocytes # 1.4 10^3/uL (0.8-4.8); Lymphocytes % 28.7 %; Mean Corpuscular HGB Conc 34.8 g/dL (30-55); Mean Corpuscular Hemoglobin 32.6 pg (27-33); Mean Corpuscular Volume 93.8 fl (82-101); Mean Platelet Volume 9.2 fL (7.4-10.4); Monocytes # 0.3 10^3/uL (0.2-0.9); Monocytes % 6.8 %; Neutrophils % 63.9 %; Nucleated Red Blood Cells % 0 %; Platelet Count 149 10^3/cmm (157-399); Red Blood Count 4.69 10^6/uL (3.85-5.65); Red Cell Distribution Width 11.9 % (12.1-15.1)
[2023-08-14 09:48] LABS: Alanine Aminotransferase 16 U/L (0-41); Albumin Level 4.5 g/dL (3.5-5.2); Alkaline Phosphatase 54 U/L (40-130); Anion Gap 12.9 (5-19); Aspartate Amino Transferase 21 U/L (0-40); Blood Urea Nitrogen 9 mg/dL (6-20); Calcium 9.9 mg/dL (8.5-10.5); Carbon Dioxide 30 mmol/L (22-29); Chloride 101 mmol/L (98-107); Globulin 3.2 g/dL (1.3-4.6); Glomerular Filtration Rate 127.6 mL/min (90-130); Glucose 90 mg/dL (65-115); Osmolality Calculated 288 mOsm/kg (285-295); Potassium 3.9 mmol/L (3.5-5.1); Salicylate 0.4 mg/dL (3-10); Sodium 140 mmol/L (136-145); Thyroid Stimulating Hormone 0.69 uIU/mL (0.27-4.20); Total Bilirubin 0.6 mg/dL (0.15-1.2); Total Protein 7.7 g/dL (6.6-8.7)
[2023-08-14 09:51] LABS: Acetaminophen < 5.0 ug/mL (10-30)
[2023-08-14 09:52] LABS: Alcohol Level < 10 mg/dL (0-10)
--- NOTE | 2023-08-14 09:57 | W.ED.PSYCHS ---
HPI - Psych General: Chief Complaint: Psychiatric Symptoms Stated Complaint: HEADACHE Time Seen by Provider: 08/14/23 08:49 History of Present Illness: 37-year-old male presents emergency department stating that he is having episodes of panic attacks and feeling like he is having some type of out of body experience. He states that he feels like his head is being elevated and his brain is being lifted out of his head. He also states that he has feelings like he is having a brain tumor that is quivering in his brain. He also states that he feels like he may be intermittently possessed by the devil and states that although he has no history of seizures that when the devil comes to him he feels like he might have a seizure. He denies suicidal ideation or homicidal ideation at present. He states that he also feels like people are talking about him and paying extra close attention to him because of his brain tumor that is quivering in his head. When asked if the patient has a history of brain malignancy benign or otherwise he states no but he is sure that the brain tumor is talking to him and telling him that people are out to get him. Associated symptoms: Reports auditory hallucinations; Deny homicidal ideation or suicidal ideation Review of Systems General: Reports: 10 or more systems reviewed and unremarkable except in HPI and below Psych: Reports: anxiety, panic attacks and auditory hallucinations; Denies: suicidal ideation or homicidal ideation [facility] ED PFSH: Surgical History Hx of thumb surgery right Hx of eye surgery left Social History Smoking and tobacco/nicotine status: never used tobacco/nicotine Second hand smoke exposure: No Alcohol intake: current Alcohol intake frequency: 3 or more drinks per day Alcohol type: beer Substance/Drug Use: never Adopted: No Caregiver/support person: No Lives independently: Yes Household members: family Housing: House Marital status: Single Number of children: 0 Highest education level completed: 11th Grade service: No Current occupational status: unemployed Physical Exam Narrative: EXAM NARRATIVE: Constitutional: the patient appears well nourished and with normal development. Vital signs reviewed as documented. HENMT: Normocephalic, atraumatic. Extermal ears with normal appearance without drainage. Nose without drainage, normal appearance. Mucus membranes moist. Neck is supple, No jugular venous distension, trachea is midline, no appreciable carotid bruits. No lymphadenopathy. No meningeal signs. Flexion, extension and lateral rotation is without pain. Eyes: Pupils are equal, round, reactive to light and accommodation. No scleral icterus. Extra-ocular movement are intact. Thorax is symmetrical and with equal rise and fall with respirations. Resp: Lungs are clear to auscultation. No wheezes, rales, crackles or ronchi at present. Cardio: Regular rate and rhythm. Positive S1, S2. No appreciable murmurs, rubs or gallops. GI: Abdominal exam reveals normal bowel sounds to all quadrants. No organomegaly. No obvious palpable masses noted. No hepatomegally appreciated. Soft, nontender to palpation. Extremity: Extremities are non-edematous and both femoral and pedal pulses are 2+ and equal bilaterally. Moves all extremities well, sensation in all extremities. Neuro: Alert and oriented x4, person, place, time and situation. Cranial nerves II through XII are grossly intact, there is no focal neurological deficits that I can appreciate at present. Motor strength in the upper and lower extremities are equal and bilateral 5/5. Psych: Cooperative, anxious, tangential thinking, paranoid behaviors. Skin: No lesions, rashes. No gross abnormalities noted. Back: Symmetrical, no obvious deformity, No CVA tenderness Course Vital Signs: Vital signs: Vital Signs Temperature 97.7 F 08/14/23 08:50 Pulse Rate 65 08/14/23 08:50 Respiratory Rate 18 08/14/23 08:50 Blood Pressure 150/98 08/14/23 08:50 Pulse Oximetry 99 08/14/23 08:50 Oxygen Delivery Me thod Room Air 08/14/23 08:50 MDM - Psych Medical Decision Making Physical exam completed and documented I will provide the patient psychiatric medical clearance and contact the psychiatrist for admission and evaluation. Medical Records I reviewed the patient's medical records. Lab Data I reviewed the patient's lab results. 08/14/23 09:07 08/14/23 09:07 Laboratory Results WBC 4.70 10^3/uL (3.29-11.43) 08/14/23 09:07 RBC 4.69 10^6/uL (3.85-5.65) 08/14/23 09:07 Hgb 15.30 g/dL (11.27-16.99) 08/14/23 09:07 Hct 44.0 % (37-53) 08/14/23 09:07 MCV 93.8 fl (82-101) 08/14/23 09:07 MCH 32.6 pg (27-33) 08/14/23 09:07 MCHC 34.8 g/dL (30-55) 08/14/23 09:07 RDW 11.9 % (12.1-15.1) L 08/14/23 09:07 Plt Count 149 10^3/cmm (157-399) L 08/14/23 09:07 MPV 9.2 fL (7.4-10.4) 08/14/23 09:07 Neut % (Auto) 63.9 % 08/14/23 09:07 Lymph % (Auto) 28.7 % 08/14/23 09:07 [place] % (Auto) 6.8 % 08/14/23 09:07 Eos % (Auto) 0.2 % 08/14/23 09:07 Baso % (Auto) 0.2 % 08/14/23 09:07 Neut # (Auto) 3.00 10^3/uL (1.8-7.7) 08/14/23 09:07 Lymph # (Auto) 1.4 10^3/uL (0.8-4.8) 08/14/23 09:07 [place]ster # (Auto) 0.3 10^3/uL (0.2-0.9) 08/14/23 09:07 Eos # (Auto) 0.0 10^3/uL (0.0-0.8) 08/14/23 09:07 Baso # (Auto) 0.0 10^3/uL (0.0-0.1) 08/14/23 09:07 Nucleated RBC % (auto) 0 % 08/14/23 09:07 Nucleated RBCs # 0.0 /100WBC 08/14/23 09:07 Sodium 140 mmol/L (136-145) 08/14/23 09:07 Potassium 3.9 mmol/L (3.5-5.1) 08/14/23 09:07 Chloride 101 mmol/L (98-107) 08/14/23 09:07 Carbon Dioxide 30 mmol/L (22-29) H 08/14/23 09:07 Anion Gap 12.9 (5-19) 08/14/23 09:07 BUN 9 mg/dL (6-20) 08/14/23 09:07 Creatinine 0.7 mg/dL (0.7-1.2) 08/14/23 09:07 GFR Calculation 127.6 mL/min (90-130) 08/14/23 09:07 Glucose 90 mg/dL (65-115) 08/14/23 09:07 Calculated Osmolality 288 mOsm/kg (285-295) 08/14/23 09:07 Calcium 9.9 mg/dL (8.5-10.5) 08/14/23 09:07 Total Bilirubin 0.6 mg/dL (0.15-1.2) 08/14/23 09:07 AST 21 U/L (0-40) 08/14/23 09:07 ALT 16 U/L (0-41) 08/14/23 09:07 Alkaline Phosphatase 54 U/L (40-130) 08/14/23 09:07 Total Protein 7.7 g/dL (6.6-8.7) 08/14/23 09:07 Albumin 4.5 g/dL (3.5-5.2) 08/14/23 09:07 Globulin 3.2 g/dL (1.3-4.6) 08/14/23 09:07 TSH 0.69 uIU/mL (0.27-4.20) 08/14/23 09:07 Urine Color Yellow (Yellow) 08/14/23 08:55 Urine Appearance Clear (CLEAR) 08/14/23 08:55 Urine pH 7 (5-7) 08/14/23 08:55 Ur Specific [place] 1.000 (1.005-1.030) L 08/14/23 08:55 Urine Protein Neg (Negative) 08/14/23 08:55 Urine Glucose (UA) Norm (Normal) 08/14/23 08:55 Urine Ketones Negative (Negative) 08/14/23 08:55 Urine Blood Neg (Negative) 08/14/23 08:55 Urine Nitrate Negative (Negative) 08/14/23 08:55 Urine Bilirubin Neg (Negative) 08/14/23 08:55 Urine Urobilinogen Norm mg/dL (Negative) 08/14/23 08:55 Ur Leukocyte Esterase Negative (Negative) 08/14/23 08:55 Salicylates 0.4 mg/dL (3-10) L 08/14/23 09:07 Urine Opiates Screen Negative ng/mL (Negative) 08/14/23 08:55 Acetaminophen < 5.0 ug/mL (10-30) L 08/14/23 09:07 Ur Barbiturates Screen Negative ng/mL (Negative) 08/14/23 08:55 Ur Phencyclidine Scrn Negative ng/mL (Negative) 08/14/23 08:55 Ur Amphetamines Screen Negative ng/mL (Negative) 08/14/23 08:55 U Benzodiazepines Scrn Negative ng/mL (Negative) 08/14/23 08:55 Urine Cocaine Screen Negative ng/mL (Negative) 08/14/23 08:55 U Marijuana (THC) Screen Positive ng/mL (Negative) H 08/14/23 08:55 Ethyl Alcohol < 10 mg/dL (0-10) 08/14/23 09:07 No radiology studies performed this visit Discharge Plan Discharge Patient Disposition: Admitted As Inpatient Admit Provider: Weston Cox Clinical Impression: Acute psychosis, Acute paranoia Condition: Stable Coding Level of Care Code ED Winch Stripper for Ollie Villalta
[2023-08-14 10:31] VITALS: BP 134/94; PULSE 65; O2SAT 99
--- NOTE | 2023-08-14 11:42 | PC.NURSE ---
Patient states he came to the hospital today because he has had a headache, every day, for the past week. He believes he might have a brain tumor because he's never had issues with headaches before. Patient says they worsen when he lays down and that it feels like my head is being lifted. Just a lot of nervousness and anxiety. Patient endorses weight loss of 20+ lbs in the last month, but says he has been eating well. When asked if he ever experienced auditory or visual hallucinations he replied, Not like that. I have out of body experiences. Like, I think I might be a hypochondriac, thinking I have a brain tumor. I just got on God's side and maybe the devil is trying to pull me back or something? He denies si/hi and any history of abuse. Patient does endorse smoking a bowl of marijuana every 2 hours each day, but says he thinks it is making his headaches worse. He does have a history of alcohol and methamphetamine abuse. However, he states it has been a year since he has used either substance. Patient lives with his grandmother at this time and says she is a reliable support system for him. Patient denies any needs at this time and denies having a headache currently.
[2023-08-14] MEDS: hyDROXYzine 25 mg Capsule 50 MG PO ×2 (11:50→20:20)
[2023-08-14 14:00] VITALS: BP 130/84; PULSE 84; RESP 20; TEMP 36.8; O2SAT 98
[2023-08-14 19:39] VITALS: BP 111/71; PULSE 74; RESP 18; TEMP 36.7; O2SAT 98
[2023-08-15 06:00] VITALS: BP 112/72; PULSE 76; RESP 18; O2SAT 98
[2023-08-15] MEDS: pantoprazole DR 40 mg Tablet PO (08:01)
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
[2023-08-15] MEDS: ARIPiprazole 10 mg Tablet PO (13:53)
[2023-08-15 14:00] VITALS: BP 129/90; PULSE 72; RESP 16; TEMP 36.3; O2SAT 98
[2023-08-15 20:28] VITALS: BP 149/91; PULSE 61; RESP 18; TEMP 36.4; O2SAT 97
[2023-08-15] MEDS: diphenhydrAMINE 50 mg Capsule PO (21:17)
[2023-08-16] MEDS: OLANZapine 5 mg ODT PO (02:04)
--- NOTE | 2023-08-16 02:06 | PC.NURSE ---
PT HAS BEEN UP AND DOWN ALL OF THIS SHIFT. PT CAME TO NURSES STATION TEARFUL WITH EXTREME ANXIETY. PT TOOK ABILIFY YESTERDAY AND IS WORRIED THAT MAY BE THE CAUSE OF WHY HE IS FEELING LIKE THIS. PT WAS GIVEN ZYDIS AND THIS PACKAGING COORDINATOR WILL CHECK TO SEE HOW ANXIETY IS ONCE MEDICATION GOES INTO AFFECT.
[2023-08-16 06:00] VITALS: BP 133/91; PULSE 76; RESP 16; O2SAT 98
[2023-08-16] MEDS: LORazepam 2 mg Tablet PO (06:12)
--- NOTE | 2023-08-16 06:26 | P.NPUPN_ITS ---
Subjective NPU 2 Subjective: Patient presented today reporting that he is doing fine. However he reports having significant anxiety since he took the Abilify. He endorsed feeling weird and odd and not liking it. Ultimately we discussed the risks, benefits and alternatives of giving him something for his anxiety or switching to Invega and he understood and agreed to proceed as is documented in this note. Mental Status Exam 2 MSE Comments: This is a underweight/slender well-developed white male, in hospital scrubs, with limited grooming and eye contact. No abnormal movements except for mild psychomotor retardation. Cooperative with exam in no acute distress. Speech was slightly decreased rate and volume. Mood described as blank, irritable or agitated; affect congruent and somewhat odd. Thought process, organized. Thought content: patient denied any suicidal or homicidal ideation, there were no delusions reported or noted, patient denied any auditory or visual hallucinations. Attention, concentration, and memory appeared intact, but none were formally tested. Alert and oriented times three. Insight and judgment appear limited. Impulse control is fair. Vitals/I&O/Wt Last Vital Signs Temp 97.5 F L 08/15/23 20:28 Pulse 76 08/16/23 06:00 Resp 16 08/16/23 06:00 BP 133/91 08/16/23 06:00 Pulse Ox 98 08/16/23 06:00 O2 Del Method Room Air 08/16/23 06:00 Weight last 48 hrs Weight 63.503 kg Data NPU 08/14/23 09:07 08/14/23 09:07 A&P Assessment and plan (1) Acute psychosis: (2) Acute paranoia: (3) GERD (gastroesophageal reflux disease): (4) Chronic hepatitis C: (5) Melena: (6) Right upper quadrant abdominal pain: Plan This is a 37-year-old white male with a past history of addiction but denying recent use over the past year who presents with obsessive thoughts about illness and feeling odd overall consistent with possible occult psychosis. 1.? Started Abilify 10 mg p.o. daily. Had significant anxiety versus akathisia that he did not want to deal with and so we agreed to switch to Invega 6 mg p.o. daily today.. 2.? Encourage individual, group, and milieu therapy. 3.? Continue q-15-minute checks for safety. Involuntary Hold Information 2 96 Hour Hold: 96 Hour Involuntary Admission: No Attestations NPU 2 Medical Necessity Statement*: Inpatient hospitalization is medically necessary and the clinically appropriate intervention, at this time. We will monitor medications and make changes as indicated. Likely length of stay is 3-5 days. Coding Level of Care Code Acute Code for Chg Fwd Diagnoses Acute psychosis F23 Acute paranoia F22 GERD (gastroesophageal reflux disease) K21.9 Chronic hepatitis C B18.2 Melena K92.1 Right upper quadrant abdominal pain R10.11
[2023-08-16] MEDS: pantoprazole DR 40 mg Tablet PO (08:17)
[2023-08-16] MEDS: paliperidone ER 6 mg Tablet PO (08:17)
[2023-08-16 14:00] VITALS: BP 138/93; PULSE 110; RESP 18; TEMP 37; O2SAT 93
[2023-08-16] MEDS: diphenhydrAMINE 50 mg Capsule PO (19:40)
[2023-08-16 20:11] VITALS: BP 120/74; PULSE 78; RESP 18; TEMP 36.6; O2SAT 99
[2023-08-17 06:00] VITALS: BP 138/95; PULSE 96; RESP 16; O2SAT 100
[2023-08-17] MEDS: paliperidone ER 6 mg Tablet PO (08:33)
[2023-08-17] MEDS: pantoprazole DR 40 mg Tablet PO (08:33)
[2023-08-17] MEDS: acetaminophen 325 mg Tablet 650 MG PO (08:39)
--- NOTE | 2023-08-17 11:45 | P.NPUPN_ITS ---
Subjective NPU 2 Subjective: Patient presented today reporting that he is hoping to get discharged as soon as possible. He reported that he is having some anxiety but feels that those strange thoughts and feelings that he was having before are resolving. We discussed the risks, benefits and alternatives of initiating BuSpar 10 mg p.o. twice daily and he understood and agreed to proceed as documented in this note. Mental Status Exam 2 MSE Comments: This is a underweight/slender well-developed white male, in hospital scrubs, with limited grooming and eye contact. No abnormal movements except for mild psychomotor retardation. Cooperative with exam in no acute distress. Speech was slightly decreased rate and volume. Mood described as a little better; affect congruent and somewhat odd. Thought process, organized. Thought content: patient denied any suicidal or homicidal ideation, there were no delusions reported or noted, patient denied any auditory or visual hallucinations. Attention, concentration, and memory appeared intact, but none were formally tested. Alert and oriented times three. Insight and judgment appear limited. Impulse control is fair. Vitals/I&O/Wt Last Vital Signs Temp 97.8 F 08/16/23 20:11 Pulse 96 08/17/23 06:00 Resp 16 08/17/23 06:00 BP 138/95 08/17/23 06:00 Pulse Ox 100 08/17/23 06:00 O2 Del Method Room Air 08/17/23 06:00 Data NPU 08/14/23 09:07 08/14/23 09:07 A&P Assessment and plan (1) Acute psychosis: (2) Acute paranoia: (3) GERD (gastroesophageal reflux disease): (4) Chronic hepatitis C: (5) Melena: (6) Right upper quadrant abdominal pain: Plan This is a 37-year-old white male with a past history of addiction but denying recent use over the past year who presents with obsessive thoughts about illness and feeling odd overall consistent with possible occult psychosis. 1.? Started Abilify 10 mg p.o. daily. Had significant anxiety versus akathisia that he did not want to deal with and so we agreed to switch to Invega 6 mg p.o. daily. Start BuSpar 10 mg p.o. twice daily. 2.? Encourage individual, group, and milieu therapy. 3.? Continue q-15-minute checks for safety. Involuntary Hold Information 2 96 Hour Hold: 96 Hour Involuntary Admission: No Attestations NPU 2 Medical Necessity Statement*: Inpatient hospitalization is medically necessary and the clinically appropriate intervention, at this time. We will monitor medications and make changes as indicated. Likely length of stay is 2-4 days. Coding Level of Care Code Acute Code for Chg Fwd Diagnoses Acute psychosis F23 Acute paranoia F22 GERD (gastroesophageal reflux disease) K21.9 Chronic hepatitis C B18.2 Melena K92.1 Right upper quadrant abdominal pain R10.11
[2023-08-17 14:00] VITALS: BP 133/89; PULSE 101; RESP 20; TEMP 36.3; O2SAT 97
[2023-08-17 14:32] LABS: Glucose Point of Care 131 mg/dL (70-110)
[2023-08-17] MEDS: diphenhydrAMINE 50 mg Capsule PO (20:01)
[2023-08-17] MEDS: BuSPIRONE 10 mg Tablet PO (20:01)
[2023-08-17 20:02] VITALS: BP 123/87; PULSE 107; RESP 16; TEMP 36.3; O2SAT 97
[2023-08-18 06:00] VITALS: RESP 16
[2023-08-18 07:53] LABS: Glucose Urine UA Norm (Normal); Ketones Urine Negative (Negative); Protein Urine Neg (Negative); Specific Gravity, Urine 1.005 (1.005-1.030); Urine Appearance Clear (CLEAR); Urine Color Straw (Yellow); pH Urine 8 (5-7)
[2023-08-18 07:54] LABS: Add Urine Culture? No; Bilirubin Urine Neg (Negative); Blood Urine Neg (Negative); Leukocyte Esterase Urine Negative (Negative); Nitrate Urine Negative (Negative); Urobilinogen Urine Neg (Negative); WBC Urine RARE /hpf (0-5)
[2023-08-18] MEDS: pantoprazole DR 40 mg Tablet PO (09:03)
[2023-08-18 14:00] VITALS: BP 138/91; PULSE 95; RESP 17; TEMP 36.4; O2SAT 98
[2023-08-18] MEDS: paliperidone ER 6 mg Tablet PO (15:51)
[2023-08-18] MEDS: paliperidone palmitate 234 mg Syringe IM (17:06)
--- NOTE | 2023-08-18 17:14 | PC.NURSE ---
administered invega sustenna 234 to patient in left deltoid. tolerated well. [id number] EXP: Jan 2025
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
[2023-08-18 18:12] VITALS: BP 138/91; PULSE 95; RESP 17; TEMP 36.4; O2SAT 98
== END 2023-08-18 19:08 | disposition home or self-care (01) | DRG 885 ==
LOC: ER 09:57 → NP 10:08
PROVIDERS: Admitting Provider Psychiatry & Neurology Psychiatry; Emergency Provider Internal Medicine; PCP Surgery; Visit Provider Psychiatry & Neurology Psychiatry
DX: F23 Brief psychotic disorder (principal); F22 Delusional disorders
CPT/HCPCS: 36415; 36416; 80053; 80306; 80307; 81001; 81003; 82962; 84443; 85025; 96372; 97150; 97165; 99285; Q0163

== ENCOUNTER → 2023-08-23 11:10 | Outpatient (BNVA) | payer BC, MEDICAID, SELFPAY | PROVIDERS: PCP Surgery; Visit Provider Nurse Practitioner | DX: R39.9 Unspecified symptoms and signs involving the genitourinary system (principal); N34.2 Other urethritis; Z20.2 Contact with and (suspected) exposure to infections with a predominantly sexual mode of transmission | CPT/HCPCS: 81000; 87086; 87491; 87591 ==

== ENCOUNTER → 2023-08-25 10:00 | Outpatient (BNVA) | payer BC, MEDICAID, SELFPAY | PROVIDERS: PCP Surgery; Visit Provider Student in an Organized Health Care Education/Training Program | DX: M25.512 Pain in left shoulder (principal); M54.42 Lumbago with sciatica, left side | CPT/HCPCS: 73030; 99203 ==

== ENCOUNTER 2023-09-11 12:41 | Emergency (ER) | payer BC, MEDICAID, SELFPAY ==
[2023-09-11 12:42] VITALS: BMI 25.7
[2023-09-11 12:43] VITALS: BP 162/97; PULSE 87; RESP 16; TEMP 36.6; O2SAT 98
--- NOTE | 2023-09-11 12:44 | XRR_ITS ---
PROCEDURE INFORMATION: Exam: XR Chest Exam date and time: 09/11/2023 12:58 PM Age: 38 years old Clinical indication: Shortness of breath; Patient HX: SOB; Anxiety attack; Aflutter TECHNIQUE: Imaging protocol: Radiologic exam of the chest. Views: 1 view. COMPARISON: CR XR shoulder LT min 2V* [id number] 08/25/2023 10:15 AM FINDINGS: Lungs: No significant active pathology. Pleural spaces: No pleural effusion or pneumothorax. Heart/Mediastinum: Unremarkable. Bones/joints: No significant pathology. XR/XR chest 1V portable [id number] IMPRESSION: No significant active disease.
--- NOTE | 2023-09-11 12:47 | ED_ITS ---
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 He denies any suicidal or homicidal ideations denies any worsening proving factors. Associated symptoms: Deny chest pain, chills, fever(s), headache(s), nausea or vomiting Review of Systems Const: Denies: fever(s), chills, body aches or change in appetite ENMT: Denies: throat pain or dental pain Card: Denies: chest pain Resp: Reports: dyspnea GI: Denies: abdominal pain, nausea, vomiting or diarrhea Musc: Denies: neck pain or back pain Neuro: Denies: headache(s) Psych: Reports: anxiety PFSH ED PFSH: Medical History Cannabis dependence, uncomplicated Other stimulant dependence, in remission Alcohol dependence, in remission CHRISTINE (generalized anxiety disorder) Anxiety Psychiatric care Surgical History Hx of thumb surgery right Hx of eye surgery left Family History Mother Depression Anxiety Father Depression Anxiety COPD (chronic obstructive pulmonary disease) Social History Smoking and tobacco/nicotine status: never used tobacco/nicotine Second hand smoke exposure: No Alcohol intake: current Alcohol intake frequency: 3 or more drinks per day Alcohol type: beer Substance/Drug Use: never Adopted: No Caregiver/support person: No Lives independently: Yes Household members: family Housing: House Marital status: Single Number of children: 0 Highest education level completed: 11th Grade service: No Current occupational status: unemployed Physical Exam Const: COMMON NORMALS: no acute distress, patient oriented x3 and healthy appearing HENMT: COMMON NORMALS: normocephalic and atraumatic HEAD & SCALP: normocephalic and atraumatic Neck/C-Spine: COMMON NORMALS: full ROM Chest: COMMONS NORMALS: normal inspection of the chest Resp: COMMON NORMALS: normal respiratory effort and clear to auscultation bilaterally AUSCULTATION: clear to auscultation bilaterally Cardio: COMMON NORMALS: regular rate, regular rhythm and No murmurs present (Cardio) RATE: regular rate RHYTHM: regular rhythm Extremity: COMMON NORMALS: normal to inspection Neuro: COMMON NORMALS: patient oriented x3, moves all extremities and no focal motor deficits Psych: COMMON NORMALS: mental status grossly normal, Normal thought process present and cooperative MOOD & AFFECT: Yes anxious THOUGHT PROCESS: Normal thought process present Skin: COMMON NORMALS: no rashes or lesions noted and no wounds GENERAL SKIN EXAM: no rashes or lesions noted Course Vital Signs: Vital signs: Vital Signs Temperature 98 F 09/11/23 12:43 Pulse Rate 87 09/11/23 12:43 Respiratory Rate 16 09/11/23 12:43 Blood Pressure 162/97 09/11/23 12:43 Pulse Oximetry 98 09/11/23 12:43 Oxygen Delivery Me thod Room Air 09/11/23 12:43 MDM - Anxiety Medical Decision Making Patient presents with an anxiety attack he is much improved here EKG x-ray are normal he is stable for discharge she is follow-up with [facility] will write him Visviriril. Medical Records I reviewed the patient's medical records. Lab Data Radiology Impressions Chest X-Ray 09/11/23 12:44 IMPRESSION: No significant active disease. All radiology interpretation(s) finalized by discharge EKG Data EKG 1: I personally reviewed and interpreted this EKG as follows: EKG interpretation date: 09/11/23 EKG interpretation time: 13:06 Interpretation: Chest X-Ray 09/11/23 12:44 IMPRESSION: No significant active disease. nsr hr [address] or t wave abnormalities qrs 94 qtc 413 Other EKG comments: Chest X-Ray 09/11/23 12:44 IMPRESSION: No significant active disease. Discharge Plan Discharge Patient Disposition: Home Clinical Impression: Acute anxiety Condition: Stable Prescriptions: New Vistaril 25 mg capsule 25 mg PO TID PRN (Reason: anxiety) Qty: 20 0RF No Action sertraline [Zoloft] 50 mg tablet 50 mg PO DAILY Qty: 30 1RF pantoprazole [Protonix] 40 mg tablet,delayed release (DR/EC) 40 mg PO DAILY Qty: 30 11RF Discharge Orders: Discharge ED (Routine); Ordered 09/11/23 Ordered By: Christine Pickard Referrals: Eric Dela Cruz DO [Primary Care Provider] - Discharge Diet: Advance as tolerated Discharge Activity: Resume usual activity Patient Instructions: Anxiety (ED) Coding Level of Care Code ED [place] Worker for Ollie Villalta
--- NOTE | 2023-09-11 13:06 | ECG_ITS ---
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 Measurements Intervals [place] Rate: 88 P: 74 MA: 142 QRS: 63 QRSD: 94 T: 58 QT: 368 QTc: 446 Interpretive Statements SINUS RHYTHM No previous ECG available for comparison Electronically Signed On 09-12-2023 8:38:08 ROLLOUT MANAGER by Chidi Moffett M.D. [email or web address]
[2023-09-11] MEDS: LORazepam 2 mg/mL INJ 10 mL MDV 1 MG IM (13:24)
[2023-09-11 13:27] VITALS: BP 162/97; PULSE 87; RESP 16; TEMP 36.6; O2SAT 98
== END 2023-09-11 13:27 | disposition home or self-care (01) ==
PROVIDERS: Emergency Provider Emergency Medicine; PCP Surgery
DX: F41.9 Anxiety disorder, unspecified (principal)
CPT/HCPCS: 71045; 93005; 96372; 99284; J2060

== ENCOUNTER 2023-09-13 14:42 | Inpatient (IN) | payer BC, SELFPAY ==
--- NOTE | 2023-09-13 14:45 | ED_ITS ---
HPI - Headache General: Stated Complaint: Headache Time Seen by Provider: 09/13/23 14:44 PFSH ED PFSH: Medical History Cannabis dependence, uncomplicated Other stimulant dependence, in remission Alcohol dependence, in remission CHRISTINE (generalized anxiety disorder) Anxiety Psychiatric care Surgical History Hx of thumb surgery right Hx of eye surgery left Family History Mother Depression Anxiety Father Depression Anxiety COPD (chronic obstructive pulmonary disease) Social History Smoking and tobacco/nicotine status: never used tobacco/nicotine Second hand smoke exposure: No Alcohol intake: current Alcohol intake frequency: 3 or more drinks per day Alcohol type: beer Substance/Drug Use: never Adopted: No Caregiver/support person: No Lives independently: Yes Household members: family Housing: House Marital status: Single Number of children: 0 Highest education level completed: 11th Grade service: No Current occupational status: unemployed Discharge Plan Discharge Condition: Stable Prescriptions: No Action sertraline [Zoloft] 50 mg tablet 50 mg PO DAILY Qty: 30 1RF pantoprazole [Protonix] 40 mg tablet,delayed release (DR/EC) 40 mg PO DAILY Qty: 30 11RF Vistaril 25 mg capsule 25 mg PO TID PRN (Reason: anxiety) Qty: 20 0RF Referrals: Eric Dela Cruz DO [Primary Care Provider] - Coding Level of Care Code ED Credentialing Coordinator for Ollie Villalta
[2023-09-13 14:49] VITALS: BP 116/77; PULSE 95; RESP 16; TEMP 36.6; O2SAT 98
[2023-09-13 14:52] VITALS: PULSE 101; RESP 18; TEMP 36.4; O2SAT 98
--- NOTE | 2023-09-13 15:04 | W.ED.PSYCHS ---
HPI - Psych General: Chief Complaint: Psychiatric Symptoms Stated Complaint: Headache Time Seen by Provider: 09/13/23 14:44 Source: patient and EMS Mode of arrival: EMS Limitations: no limitations History of Present Illness: 38-year-old male who has a history of severe paranoias he states that over the last few days he feels like he has been having personality changes he feels like he has a brain tumor along with severe anxiety denies any SI or HI but states he wants to be readmitted to the [facility] to get some help. Associated symptoms: Deny depression Review of Systems Const: Denies: fever(s), chills, body aches or change in appetite ENMT: Denies: throat pain or dental pain Card: Denies: chest pain Resp: Denies: dyspnea GI: Denies: abdominal pain, nausea, vomiting or diarrhea : Denies: dysuria Musc: Denies: neck pain or back pain Skin/Breast: Denies: rash Neuro: Denies: headache(s) Psych: Reports: anxiety and paranoia; Denies: depression PFSH ED PFSH: Medical History Cannabis dependence, uncomplicated Other stimulant dependence, in remission Alcohol dependence, in remission CHRISTINE (generalized anxiety disorder) Anxiety Psychiatric care Surgical History Hx of thumb surgery right Hx of eye surgery left Family History Mother Depression Anxiety Father Depression Anxiety COPD (chronic obstructive pulmonary disease) Social History Smoking and tobacco/nicotine status: never used tobacco/nicotine Second hand smoke exposure: No Alcohol intake: current Alcohol intake frequency: 3 or more drinks per day Alcohol type: beer Substance/Drug Use: never Adopted: No Caregiver/support person: No Lives independently: Yes Household members: family Housing: House Marital status: Single Number of children: 0 Highest education level completed: 11th Grade service: No Current occupational status: unemployed Physical Exam Const: COMMON NORMALS: no acute distress, patient oriented x3 and healthy appearing HENMT: COMMON NORMALS: normocephalic and atraumatic HEAD & SCALP: normocephalic and atraumatic Neck/C-Spine: COMMON NORMALS: full ROM and supple Chest: COMMONS NORMALS: normal inspection of the chest Resp: COMMON NORMALS: normal respiratory effort Cardio: COMMON NORMALS: regular rate, regular rhythm and No murmurs present (Cardio) RATE: regular rate RHYTHM: regular rhythm Extremity: COMMON NORMALS: normal to inspection and full ROM Neuro: COMMON NORMALS: patient oriented x3, moves all extremities and no focal motor deficits Psych: COMMON NORMALS: mental status grossly normal and cooperative THOUGHT PROCESS: disorganized THOUGHT CONTENT: Yes Derealization present Skin: COMMON NORMALS: no rashes or lesions noted and no wounds GENERAL SKIN EXAM: no rashes or lesions noted Course Vital Signs: Vital signs: Vital Signs Temperature 97.6 F 09/13/23 14:52 Pulse Rate 101 H 09/13/23 14:52 Respiratory Rate 18 09/13/23 14:52 Pulse Oximetry 98 09/13/23 14:52 Oxygen Delivery Me thod Room Air 09/13/23 14:52 [facility] - Psych Medical Decision Making Patient presents with paranoia along with acute psychosis he is medically cleared spoke to psychiatrist will admit at this time. Medical Records I reviewed the patient's medical records. Lab Data I reviewed the patient's lab results. No radiology studies performed this visit Discharge Plan Discharge Admit Provider: Weston Cox Clinical Impression: Acute psychosis, Acute paranoia Condition: Stable Coding Level of Care Code ED Test Fixture Designer for Ollie Villalta
--- NOTE | 2023-09-13 15:09 | PC.PHAR ---
pt states he takes care of his own medications-pt states he can not takes zoloft 50mg daily rx written 09/08/23 pt states zoloft gave him hives and rash-pt states he is taking vistaril 25mg bid rx written for 25mg tid prn-
[2023-09-13 15:49] LABS: Basophils % 0.7 %; Eosinophils # 0.1 10^3/uL (0.0-0.8); Eosinophils % 2.4 %; Hematocrit 41.5 % (37-53); Lymphocytes # 1.6 10^3/uL (0.8-4.8); Lymphocytes % 37.2 %; Mean Corpuscular HGB Conc 35.2 g/dL (30-55); Mean Corpuscular Hemoglobin 33.1 pg (27-33); Mean Corpuscular Volume 94.1 fl (82-101); Mean Platelet Volume 9.3 fL (7.4-10.4); Monocytes # 0.3 10^3/uL (0.2-0.9); Monocytes % 6.2 %; Neutrophils # 2.22 10^3/uL (1.8-7.7); Neutrophils % 53.3 %; Nucleated Red Blood Cells % 0 %; Platelet Count 127 10^3/cmm (157-399); Red Blood Count 4.41 10^6/uL (3.85-5.65); Red Cell Distribution Width 12.1 % (12.1-15.1); White Blood Count 4.17 10^3/uL (3.29-11.43)
[2023-09-13 16:09] LABS: Alanine Aminotransferase 18 U/L (0-41); Albumin Level 4.5 g/dL (3.5-5.2); Alcohol Level 59 mg/dL (0-10); Alkaline Phosphatase 52 U/L (40-130); Anion Gap 15.8 (5-19); Aspartate Amino Transferase 21 U/L (0-40); Blood Urea Nitrogen 11 mg/dL (6-20); Calcium 9.6 mg/dL (8.5-10.5); Carbon Dioxide 26 mmol/L (22-29); Chloride 102 mmol/L (98-107); Glomerular Filtration Rate 126.9 mL/min (90-130); Glucose 91 mg/dL (65-115); Osmolality Calculated 289 mOsm/kg (285-295); Potassium 3.8 mmol/L (3.5-5.1); Sodium 140 mmol/L (136-145); Total Bilirubin 0.3 mg/dL (0.15-1.2); Total Protein 7.5 g/dL (6.6-8.7)
[2023-09-13 16:10] LABS: Acetaminophen < 5.0 ug/mL (10-30); Salicylate < 0.3 mg/dL (3-10)
[2023-09-13 17:02] VITALS: BP 145/73
[2023-09-13 18:39] LABS: Amphetamines Screen Urine Negative (Negative); Barbiturates Screen Urine Negative (Negative); Benzodiazepines Screen Urine Negative (Negative); Cocaine Screen Urine Negative (Negative); Opiate Screen Urine Negative (Negative); PCP Screen Urine Negative (Negative); THC Screen Urine Negative (Negative)
[2023-09-13] MEDS: trazodone 50 mg Tablet PO ×2 (20:38→22:42)
[2023-09-13 20:46] VITALS: BP 122/80; PULSE 104; RESP 18; TEMP 36.8; O2SAT 98
[2023-09-14 05:47] VITALS: BP 126/91; PULSE 92; RESP 18; TEMP 36.7; O2SAT 97
[2023-09-14] MEDS: pantoprazole DR 40 mg Tablet PO (08:32)
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
--- NOTE | 2023-09-14 11:56 | PC.NURSE ---
This nurse contacted [facility] and verified with staff that patient received Invega 156mg Invega injection on 08/31/23.
[2023-09-14 14:00] VITALS: BP 124/75; PULSE 89; RESP 13; TEMP 36.6; O2SAT 98
[2023-09-14] MEDS: trazodone 50 mg Tablet PO (20:07)
[2023-09-14] MEDS: propranolol 20 mg Tablet PO (20:08)
[2023-09-14] MEDS: OLANZapine 5 mg ODT PO (20:08)
[2023-09-14 20:13] VITALS: BP 129/87; PULSE 75; RESP 16; O2SAT 99
[2023-09-15 06:00] VITALS: BP 122/82; PULSE 75; RESP 18; TEMP 36.9; O2SAT 99
--- NOTE | 2023-09-15 08:40 | P.NPUPN_ITS ---
Subjective NPU 2 Subjective: Patient presented today reporting that he is feeling much better. He reports the medication is helping his anxiety. We reviewed his Invega Sustenna and identified that in fact the next dose is not due till next . And he was fine with that. We discussed monitoring him daily and the likelihood of discharge by Tuesday but that we will work with his grandmother to see if we can facilitate an earlier discharge. He denied any side effects to the medication. Mental Status Exam 2 MSE Comments: This is a underweight/slender well-developed white male, in hospital scrubs, with adequate grooming and eye contact. No abnormal movements except for mild psychomotor retardation. Cooperative with exam in mild distress. Speech was slightly decreased rate and volume. Mood described as anxious; affect congruent and somewhat odd. Thought process, organized. Thought content: patient denied any suicidal or homicidal ideation, there were no delusions reported or noted, patient denied any auditory or visual hallucinations. Attention, concentration, and memory appeared intact, but none were formally tested. Alert and oriented times three. Insight and judgment appear limited. Impulse control is fair. Vitals/I&O/Wt Last Vital Signs Temp 98.4 F 09/15/23 06:00 Pulse 75 09/15/23 06:00 Resp 18 09/15/23 06:00 BP 122/82 09/15/23 06:00 Pulse Ox 99 09/15/23 06:00 O2 Del Method Room Air 09/15/23 06:00 Weight last 48 hrs Weight 60.963 kg Data NPU 09/13/23 15:37 09/13/23 15:37 A&P Assessment and plan (1) Acute psychosis: (2) Acute paranoia: (3) GERD (gastroesophageal reflux disease): (4) Chronic hepatitis C: (5) Melena: (6) Right upper quadrant abdominal pain: Plan This is a 37-year-old white male with a past history of addiction but denying recent use over the past year who presents with obsessive thoughts about illness and feeling odd overall consistent with possible occult psychosis. 1.? Continue current medication. Started propranolol 20 mg p.o. 3 times daily as needed. Review of Invega Sustenna injections places his first monthly injection next , 09/22/2023 2.? Encourage individual, group, and milieu therapy. 3.? Continue q-15-minute checks for safety. Involuntary Hold Information 2 96 Hour Hold: 96 Hour Involuntary Admission: No Attestations NPU 2 Medical Necessity Statement*: Inpatient hospitalization is medically necessary and the clinically appropriate intervention, at this time. We will monitor medications and make changes as indicated. Likely length of stay is 2-4 days. Coding Level of Care Code Acute Code for [facility] Fwd Diagnoses Acute psychosis F23 Acute paranoia F22 GERD (gastroesophageal reflux disease) K21.9 Chronic hepatitis C B18.2 Melena K92.1 Right upper quadrant abdominal pain R10.11
[2023-09-15 09:06] VITALS: BP 120/88; PULSE 88
[2023-09-15] MEDS: propranolol 20 mg Tablet PO (09:06)
[2023-09-15] MEDS: pantoprazole DR 40 mg Tablet PO (09:06)
[2023-09-15 14:00] VITALS: BP 127/87; PULSE 84; RESP 18; TEMP 36.5; O2SAT 99
[2023-09-15] MEDS: trazodone 50 mg Tablet PO (20:01)
[2023-09-15 21:35] VITALS: BP 129/88; PULSE 76; RESP 16; TEMP 36.9; O2SAT 98
[2023-09-16 06:00] VITALS: BP 138/91; PULSE 89; RESP 16; TEMP 36.6; O2SAT 97
[2023-09-16] MEDS: pantoprazole DR 40 mg Tablet PO (07:39)
[2023-09-16 07:40] VITALS: BP 141/94; PULSE 102; RESP 18; O2SAT 97
[2023-09-16] MEDS: propranolol 20 mg Tablet PO (07:40)
--- NOTE | 2023-09-16 08:35 | P.NPUPN_ITS ---
Subjective NPU 2 Subjective: Patient presented today reporting that he is doing okay. We discussed our previous conversation about discharge which had talked about the possibility of Tuesday and discussed the fact that he seems better and would likely not need to stay that long. Patient agreed and we worked with his grandmother to look at discharge planning. We discussed the risks, benefits and alternatives of discharging him tomorrow morning with follow-up for his next injection next , 09/22/2023 and he understood and agreed to proceed as is documented in this note. He reports the medications are working okay and denied any side effects to them. Mental Status Exam 2 MSE Comments: This is a underweight/slender well-developed white male, in hospital scrubs, with adequate grooming and eye contact. No abnormal movements except for mild psychomotor retardation. Cooperative with exam in mild distress. Speech was slightly decreased rate and volume. Mood described as better but still having anxiety about my physical health; affect congruent and somewhat odd. Thought process, organized. Thought content: patient denied any suicidal or homicidal ideation, there were no delusions reported or noted, patient denied any auditory or visual hallucinations. Attention, concentration, and memory appeared intact, but none were formally tested. Alert and oriented times three. Insight and judgment appear limited. Impulse control is fair. Vitals/I&O/Wt Last Vital Signs Temp 97.8 F 09/16/23 06:00 Pulse 102 H 09/16/23 07:40 Resp 18 09/16/23 07:40 BP 141/94 09/16/23 07:40 Pulse Ox 97 09/16/23 07:40 O2 Del Method Room Air 09/16/23 07:40 Data NPU 09/13/23 15:37 09/13/23 15:37 A&P Assessment and plan (1) Acute psychosis: (2) Acute paranoia: (3) GERD (gastroesophageal reflux disease): (4) Chronic hepatitis C: (5) Melena: (6) Right upper quadrant abdominal pain: Plan This is a 37-year-old white male with a past history of addiction but denying recent use over the past year who presents with obsessive thoughts about illness and feeling odd overall consistent with possible occult psychosis. 1.? Continue current medication. Started propranolol 20 mg p.o. 3 times daily as needed. Review of Invega Sustenna injections places his first monthly injection next , 09/22/2023 2.? Encourage individual, group, and milieu therapy. 3.? Continue q-15-minute checks for safety. 4. Worked with mom and patient to be able to plan for discharge. Plan for discharge in the morning. Involuntary Hold Information 2 96 Hour Hold: 96 Hour Involuntary Admission: No Attestations NPU 2 Medical Necessity Statement*: Inpatient hospitalization is medically necessary and the clinically appropriate intervention, at this time. We will monitor medications and make changes as indicated. Likely length of stay is 1 day. Coding Level of Care Code Acute Code for [facility] Fwd Diagnoses Acute psychosis F23 Acute paranoia F22 GERD (gastroesophageal reflux disease) K21.9 Chronic hepatitis C B18.2 Melena K92.1 Right upper quadrant abdominal pain R10.11
[2023-09-16 14:00] VITALS: BP 113/78; PULSE 85; RESP 16; TEMP 36.9; O2SAT 97
[2023-09-16] MEDS: trazodone 50 mg Tablet PO (21:06)
[2023-09-16] MEDS: quetiapine 25 mg Tablet 50 MG PO (21:06)
[2023-09-16 21:08] VITALS: BP 129/76; PULSE 79; RESP 16; TEMP 36.4; O2SAT 97
[2023-09-17] MEDS: trazodone 50 mg Tablet PO (01:58)
[2023-09-17 06:00] VITALS: BP 122/87; PULSE 103; RESP 18; TEMP 36.4; O2SAT 97
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
[2023-09-17] MEDS: pantoprazole DR 40 mg Tablet PO (07:44)
[2023-09-17 07:52] VITALS: BP 122/87; PULSE 103; RESP 18; TEMP 36.4; O2SAT 97
--- NOTE | 2023-09-17 08:34 | PC.NURSE ---
written discharge instructions discussed and left with patient. pt left in pov with grandparents.
== END 2023-09-17 08:23 | disposition home or self-care (01) | DRG 885 ==
LOC: ER 14:49 → NP 14:59
PROVIDERS: Admitting Provider Psychiatry & Neurology Psychiatry; Emergency Provider Emergency Medicine; PCP Family Medicine; Visit Provider Psychiatry & Neurology Psychiatry
DX: F22 Delusional disorders (principal); F41.9 Anxiety disorder, unspecified; F12.20 Cannabis dependence, uncomplicated; F10.20 Alcohol dependence, uncomplicated; F41.1 Generalized anxiety disorder; B18.2 Chronic viral hepatitis C
CPT/HCPCS: 36415; 80053; 80306; 80307; 85025; 97150; 97165; 99285

== ENCOUNTER → 2023-09-26 13:44 | Outpatient (BNVA) | payer BC, SELFPAY | PROVIDERS: PCP Family Medicine; Visit Provider Family Medicine | DX: R32 Unspecified urinary incontinence (principal) | CPT/HCPCS: 80307; 81000 ==

== ENCOUNTER → 2024-01-04 09:51 | Outpatient (BNVA) | payer BC, SELFPAY | PROVIDERS: PCP Family Medicine; Visit Provider Nurse Practitioner | DX: Z79.899 Other long term (current) drug therapy (principal); F41.1 Generalized anxiety disorder; F15.21 Other stimulant dependence, in remission; F10.21 Alcohol dependence, in remission; F31.81 Bipolar II disorder | CPT/HCPCS: 80061; 83036 ==

== ENCOUNTER → 2024-05-18 10:30 | Outpatient (BNVA) | payer BC, MEDICAID, SELFPAY | PROVIDERS: PCP Nurse Practitioner Family; Visit Provider Nurse Practitioner Family | DX: F31.81 Bipolar II disorder (principal) | CPT/HCPCS: 80053; 85025 ==

== ENCOUNTER → 2025-06-04 12:01 | Outpatient (BNVA) | payer BC, MEDICAID, SELFPAY | PROVIDERS: PCP Nurse Practitioner Family; Visit Provider Nurse Practitioner Family | DX: K21.9 Gastro-esophageal reflux disease without esophagitis (principal) | CPT/HCPCS: 80053; 80061; 82607; 84443; 85025 ==